=== PATIENT | female | born 1965 | race Caucasian/White ===

== ENCOUNTER 2020-09-07 18:05 | Emergency (ER) | payer MEDICARE, MEDICAID, SELFPAY ==
--- NOTE | 2020-09-07 | XR_ITS ---
EXAMINATION: XR FOOT, LEFT CLINICAL INFORMATION: Trauma. Pain. Swelling. COMPARISON: None TECHNIQUE: AP, lateral, and oblique views of the left foot. FINDINGS: No fracture. No dislocation. Joint spaces are normal. Incidental note of longitudinal osteosclerosis medial cortex of the distal phalange of the great toe. No abnormal periosteal reaction. Small plantar calcaneal spur. Small spur at the insertion of Achilles tendon at the posterior calcaneus. XR/XR foot LT min 3V IMPRESSION: No acute abnormality of the left foot.
[2020-09-07 18:18] VITALS: BP 131/86; PULSE 100; RESP 18; TEMP 36.5; O2SAT 95; BMI 23.8
--- NOTE | 2020-09-07 18:37 | ED.LOWEXIN ---
HPI - Extremity Injury (Lower) General Chief Complaint: Extremity Injury, Lower Stated Complaint: foot pain due to injury Time Seen by Provider: 09/07/20 18:35 Source: patient Mode of arrival: ambulatory Limitations: no limitations History of Present Illness HPI Narrative: Patient dropped a can of beans 2 days ago on to her left foot since then complaining of pain there was swelling before now swelling is getting better a slight redness still there she has pain on ambulation no open wound Onset (ago): day(s) (2) Injury: Left: foot Treatments prior to arrival: cold therapy Related Data Previous Rx's Medication Instructions Recorded oxycodone 5 mg PO Q6H PRN #20 tab 09/07/20 Allergies Allergy/AdvReac Type Severity Reaction Status Date / Time alcohol [ALCOHOL] Allergy Unknown SWELLING Verified 09/07/20 18:52 (FACIAL) duloxetine [From CYMBALTA] Allergy Unknown UNKNOWN Verified 09/07/20 18:52 pregabalin [From LYRICA] Allergy Unknown UNKNOWN Verified 09/07/20 18:52 shellfish derived Allergy Unknown UNKNOWN Verified 09/07/20 18:52 [SHELLFISH DERIVED] ketorolac [From Toradol] Allergy Rash Verified 09/07/20 18:52 tramadol Allergy Hives Verified 09/07/20 18:52 ondansetron [From Zofran] AdvReac Vomiting Verified 09/07/20 18:52 Review of Systems Review of Systems: Yes all other systems are reviewed and are negative PMFSH Past Medical History Medical History HTN (hypertension) Low back pain Surgical History History of left shoulder replacement Social History Social History Smoking Status: Light tobacco smoker Use of substances other than those prescribed or required for medical reasons: No Advance Directives: No Advance Directives Information Provided: Yes Physical Exam Vital Signs: Vital Signs: Last Vital Signs Temp 97.7 F 09/07/20 18:18 Pulse 100 09/07/20 18:18 Resp 18 09/07/20 18:18 BP 131/86 09/07/20 18:18 Pulse Ox 95 09/07/20 18:18 Body Mass Index 23.8 Const: General: no acute distress HENMT: Head: Yes normocephalic and Yes atraumatic Resp: Effort & Inspection: normal respiratory effort Cardio: Rate: regular rate Rhythm: regular rhythm Extrem: Ankle/foot/toe images: 1. Diffuse tenderness with erythema slight swelling no focal bony tenderness no open wound Course Course Course Narrative: X-ray negative for any fracture. Will give patient a postop shoe and pain management Discharge Plan Discharge Clinical Impression: Contusion of foot, left Qualifiers: Encounter type: initial encounter Qualified Code(s): S90.32XA - Contusion of left foot, initial encounter Patient Disposition: Home, Self-Care Instructions: Foot Contusion (ED) Additional Instructions: Apply ice, keep the left foot elevated take pain medication as advised Follow with PCP if not better Prescriptions: New oxycodone 5 mg tablet 5 mg PO Q6H PRN (Reason: Pain, Moderate) Qty: 20 RF: 0 Interventions: ED Discharge Assessment Last Done: 09/07/20 19:44 Discharge Date/Time: 09/07/20 19:44
[2020-09-07] MEDS: oxyCODONE HCl Immed Release 5 MG TABLET 10 MG PO (19:36)
== END 2020-09-07 19:44 | disposition home or self-care (01) ==
PROVIDERS: Emergency Provider Internal Medicine; PCP Internal Medicine
DX: S90.32XA Contusion of left foot, initial encounter (principal); M79.672 Pain in left foot; Y29.XXXA Contact with blunt object, undetermined intent, initial encounter; Y93.9 Activity, unspecified; Y92.9 Unspecified place or not applicable; Y99.9 Unspecified external cause status
CPT/HCPCS: 73630; 99283; 99284

== ENCOUNTER 2021-08-07 19:08 | Emergency (ER) | payer MEDICARE, MEDICAID, SELFPAY ==
[2021-08-07 22:54] VITALS: PULSE 63; TEMP 36.5; O2SAT 98; BMI 31.1
--- NOTE | 2021-08-07 22:58 | ED_ITS ---
HPI - Abdominal Pain General Chief Complaint: General Medical Stated Complaint: n/v/abd pain urogen probs Time Seen by Provider: 08/07/21 21:25 Source: patient Mode of arrival: ambulatory Limitations: no limitations History of Present Illness HPI narrative: Patient history of gastroparesis, anxiety, IVDA heroin abuse been to ER multiple times for abdominal pain and vomiting with anxiety comes here for same complaining of diffuse abdominal pain with vomiting multiple times no fever no chills patient already been vaccinated against COVID no cough no shortness of breath asking for Ativan patient is borderline diabetic supposed to be on metformin has not started yet Related Data Previous Rx's Medication Instructions Recorded oxycodone 5 mg tablet 5 mg PO Q6H PRN #20 tab 09/07/20 lorazepam 1 mg tablet (Ativan) 1 mg PO TID PRN #14 tab 08/08/21 metformin 500 mg tablet 500 mg PO BID #60 tab 08/08/21 prochlorperazine maleate 10 mg 10 mg PO Q8H PRN #10 tab 08/08/21 tablet (Compazine) Allergies Allergy/AdvReac Type Severity Reaction Status Date / Time alcohol [ALCOHOL] Allergy Unknown SWELLING Verified 09/07/20 18:52 (FACIAL) duloxetine [From CYMBALTA] Allergy Unknown UNKNOWN Verified 09/07/20 18:52 pregabalin [From LYRICA] Allergy Unknown UNKNOWN Verified 09/07/20 18:52 shellfish derived Allergy Unknown UNKNOWN Verified 09/07/20 18:52 [SHELLFISH DERIVED] ketorolac [From Toradol] Allergy Rash Verified 09/07/20 18:52 tramadol Allergy Hives Verified 09/07/20 18:52 ondansetron [From Zofran] AdvReac Vomiting Verified 09/07/20 18:52 Review of Systems Review of Systems Yes all other systems are reviewed and are negative Physical Exam Vital Signs: Vital Signs: Last Vital Signs Temp 97.7 F 08/07/21 22:54 Pulse 71 08/08/21 03:43 Resp 24 H 08/08/21 03:43 BP 154/71 H 08/08/21 03:43 Pulse Ox 98 08/08/21 02:57 BMI result Body Mass Index 31.1 Appearance: Alert. Oriented X3. Anxious Eyes: PERRLA, No Nystagmus ENT: Pharynx normal. Oral Mucosa moist edentulous Neck: Normal inspection. Neck supple. CVS: Normal heart rate and rhythm. Pulses normal. Respiratory: No respiratory distress. Equal air entry bilateral, no wheezing/rales/rhonchi Abdomen: Soft , diffuse abdominal tenderness no rebound tenderness or guarding, Bowel sounds are present, no mass palpable, no CVA tenderness Skin: Skin warm and dry. Normal skin color. Normal skin turgor. Extremities: No lower extremity edema. No calf tenderness IVDA track rouse upper extremities and lower extremities Neuro: Oriented X 3. MDM - Abdominal Pain MDM Narrative Medical decision making narrative: Patient with diabetes substance abuse gastroparesis diabetic no significant acidosis patient felt better after IV fluids and Ativan taking p.o. fluids , advised to follow with PCP Lab Data Attestation: I reviewed the patient's lab results. Result diagrams: 08/07/21 23:15 08/08/21 00:01 Labs: Lab Results 08/07/21 08/07/21 08/08/21 Range/Units 23:15 23:37 00:01 WBC 15.3 H (4.8-10.8) X10*3/uL RBC 5.43 (4.20-5.50) X10*6/uL Hgb 15.0 (12.0-16.0) g/dl Hct 43.7 (37.0-47.0) % MCV 80.5 (80.0-98.0) fL MCH 27.6 (27.0-33.0) pg MCHC 34.3 (31.0-35.0) g/dl RDW 13.8 (11.0-16.0) % Plt Count 316 (160-400) X10*3/uL MPV 9.6 (9.4-12.3) fL Immature Gran % (Auto) 0.4 (0.0-0.4) % Neut % (Auto) 86.0 H (45-73) % Lymph % (Auto) 10.0 L (20-40) % [place] % (Auto) 3.2 (2-11) % Eos % (Auto) 0.1 (0-4) % Baso % (Auto) 0.3 (0-2) % Lymph # (Auto) 1.5 (1.2-4.9) X10*3/uL [place] # (Auto) 0.5 (0.1-1.2) X10*3/uL Eos # (Auto) 0.0 (0.0-0.4) X10*3/uL Baso # (Auto) 0.1 (0.0-0.2) X10*3/uL Abs Immat Gran (auto) 0.06 H (0.00-0.03) X10*3/uL Absolute Neuts (auto) 13.1 H (2.0-8.3) x10*3/uL Absolute Nucleated RBC 0.000 (0.0-0.012) X10*3/uL Nucleated RBC % (auto) 0.0 (0.0-0.2) /100WBC Sodium 139 (135-145) mmol/L Potassium 3.7 (3.3-5.1) mmol/L Chloride 101 (96-108) mmol/L Carbon Dioxide 21 L (22-29) mmol/L Anion Gap 21 H (12-20) BUN 8 L (9-16) mg/dL Creatinine 0.79 (0.5-1.4) mg/dL Estim Creat Clear Calc 74.6 Estimated GFR > 60 POC Glucose (60-115) mg/dL Random Glucose 374 H* (60-115) mg/dL Calcium 9.3 (8.4-10.2) mg/dL Magnesium 1.6 (1.6-2.6) mg/dL Total Bilirubin 0.5 (0.0-1.0) mg/dL AST 70 H (5-31) U/L ALT 92 H (0-31) U/L Alkaline Phosphatase 156 H (39-117) U/L Total Protein 7.6 (6.5-8.0) g/dL Albumin 4.2 (3.5-5.0) g/dL Lipase 9 (8-78) U/L COVID-19 (ANNITA) Negative (Negative) COVID-19 Clin Com See Note 08/08/21 08/08/21 08/08/21 Range/Units 02:32 03:41 05:05 WBC (4.8-10.8) X10*3/uL RBC (4.20-5.50) X10*6/uL Hgb (12.0-16.0) g/dl Hct (37.0-47.0) % MCV (80.0-98.0) fL MCH (27.0-33.0) pg MCHC (31.0-35.0) g/dl RDW (11.0-16.0) % Plt Count (160-400) X10*3/uL MPV (9.4-12.3) fL Immature Gran % (Auto) (0.0-0.4) % Neut % (Auto) (45-73) % Lymph % (Auto) (20-40) % [place] % (Auto) (2-11) % Eos % (Auto) (0-4) % Baso % (Auto) (0-2) % Lymph # (Auto) (1.2-4.9) X10*3/uL [place] # (Auto) (0.1-1.2) X10*3/uL Eos # (Auto) (0.0-0.4) X10*3/uL Baso # (Auto) (0.0-0.2) X10*3/uL Abs Immat Gran (auto) (0.00-0.03) X10*3/uL Absolute Neuts (auto) (2.0-8.3) x10*3/uL Absolute Nucleated RBC (0.0-0.012) X10*3/uL Nucleated RBC % (auto) (0.0-0.2) /100WBC Sodium (135-145) mmol/L Potassium (3.3-5.1) mmol/L Chloride (96-108) mmol/L Carbon Dioxide (22-29) mmol/L Anion Gap (12-20) BUN (9-16) mg/dL Creatinine (0.5-1.4) mg/dL Estim Creat Clear Calc Estimated GFR POC Glucose 315 H 312 H 306 H (60-115) mg/dL Random Glucose (60-115) mg/dL Calcium (8.4-10.2) mg/dL Magnesium (1.6-2.6) mg/dL Total Bilirubin (0.0-1.0) mg/dL AST (5-31) U/L ALT (0-31) U/L Alkaline Phosphatase (39-117) U/L Total Protein (6.5-8.0) g/dL Albumin (3.5-5.0) g/dL Lipase (8-78) U/L COVID-19 (ANNITA) (Negative) COVID-19 Clin Com 08/08/21 Range/Units 06:16 WBC (4.8-10.8) X10*3/uL RBC (4.20-5.50) X10*6/uL Hgb (12.0-16.0) g/dl Hct (37.0-47.0) % MCV (80.0-98.0) fL MCH (27.0-33.0) pg MCHC (31.0-35.0) g/dl RDW (11.0-16.0) % Plt Count (160-400) X10*3/uL MPV (9.4-12.3) fL Immature Gran % (Auto) (0.0-0.4) % Neut % (Auto) (45-73) % Lymph % (Auto) (20-40) % [place] % (Auto) (2-11) % Eos % (Auto) (0-4) % Baso % (Auto) (0-2) % Lymph # (Auto) (1.2-4.9) X10*3/uL [place] # (Auto) (0.1-1.2) X10*3/uL Eos # (Auto) (0.0-0.4) X10*3/uL Baso # (Auto) (0.0-0.2) X10*3/uL Abs Immat Gran (auto) (0.00-0.03) X10*3/uL Absolute Neuts (auto) (2.0-8.3) x10*3/uL Absolute Nucleated RBC (0.0-0.012) X10*3/uL Nucleated RBC % (auto) (0.0-0.2) /100WBC Sodium (135-145) mmol/L Potassium (3.3-5.1) mmol/L Chloride (96-108) mmol/L Carbon Dioxide (22-29) mmol/L Anion Gap (12-20) BUN (9-16) mg/dL Creatinine (0.5-1.4) mg/dL Estim Creat Clear Calc Estimated GFR POC Glucose 283 H (60-115) mg/dL Random Glucose (60-115) mg/dL Calcium (8.4-10.2) mg/dL Magnesium (1.6-2.6) mg/dL Total Bilirubin (0.0-1.0) mg/dL AST (5-31) U/L ALT (0-31) U/L Alkaline Phosphatase (39-117) U/L Total Protein (6.5-8.0) g/dL Albumin (3.5-5.0) g/dL Lipase (8-78) U/L COVID-19 (ANNITA) (Negative) COVID-19 Clin Com Discharge Plan Discharge Clinical Impression: Anxiety, Diabetic gastroparesis Patient Disposition: Home, Self-Care Instructions: Diabetic Gastroparesis (DC), Anxiety (ED) Additional Instructions: Drink plenty of fluids Ativan for anxiety Compazine for nausea and vomiting Follow-up with your PCP for elevated blood sugar Start taking metformin for your diabetes Prescriptions: New prochlorperazine maleate [Compazine] 10 mg tablet 10 mg PO Q8H PRN (Reason: nausea and vomiting) Qty: 10 RF: 0 lorazepam [Ativan] 1 mg tablet 1 mg PO TID PRN (Reason: anxiety) Qty: 14 RF: 0 metformin 500 mg tablet 500 mg PO BID Qty: 60 RF: 0 No Action oxycodone 5 mg tablet 5 mg PO Q6H PRN (Reason: Pain, Moderate) Qty: 20 RF: 0 Interventions: ED Discharge Assessment Last Done: 08/08/21 06:45 PMFSH Past Medical History Medical History Anxiety Gastro-esophageal reflux Gastroparesis Hepatitis Heroin abuse HTN (hypertension) IV drug abuse Leukocytosis Low back pain Surgical History H/O tubal ligation History of left shoulder replacement Hx of cholecystectomy Social History Social History Advance Directives: No Advance Directives Information Provided: No
[2021-08-07 22:59] VITALS: BP 138/69
[2021-08-07 23:18] LABS: MANUAL DIFF FLAG NO
[2021-08-07 23:20] LABS: Basophils Absolute Auto 0.1 X10*3/uL (0.0-0.2); Basophils Percent Auto 0.3 % (0-2); Eosinophils Percent Auto 0.1 % (0-4); Hematocrit 43.7 % (37.0-47.0); Imm Gran Abs Auto 0.06 X10*3/uL (0.00-0.03); Imm Gran Pct Auto 0.4 % (0.0-0.4); Lymphocytes Absolute Auto 1.5 X10*3/uL (1.2-4.9); Mean Corpuscular HGB Conc 34.3 g/dl (31.0-35.0); Mean Corpuscular Hemoglobin 27.6 pg (27.0-33.0); Mean Corpuscular Volume 80.5 fL (80.0-98.0); Mean Platelet Volume 9.6 fL (9.4-12.3); Monocytes Absolute Auto 0.5 X10*3/uL (0.1-1.2); Monocytes Percent Auto 3.2 % (2-11); Neutrophils Absolute Auto 13.1 x10*3/uL (2.0-8.3); Platelet Count 316 X10*3/uL (160-400); Red Blood Count 5.43 X10*6/uL (4.20-5.50); Red Cell Distribution Width 13.8 % (11.0-16.0); White Blood Count 15.3 X10*3/uL (4.8-10.8)
[2021-08-07] MEDS: 0.9 % Sodium Chloride 1,000 ML 999 ML IVCONT (23:31)
[2021-08-07] MEDS: LORazepam 2 MG/ML VIAL 1 MG IVPUSH (23:31)
[2021-08-07 23:49] VITALS: BP 163/78; PULSE 68; RESP 20; O2SAT 97
[2021-08-08 00:06] LABS: COVID-19 Test Negative (Negative); IDNOW Serial# 9DD0AD1C
[2021-08-08 00:32] LABS: Alanine Aminotransferase 92 U/L (0-31); Albumin Level 4.2 g/dL (3.5-5.0); Alkaline Phosphatase 156 U/L (39-117); Anion Gap 21 (12-20); Aspartate Amino Transferase 70 U/L (5-31); Bilirubin Total 0.5 mg/dL (0.0-1.0); Blood Urea Nitrogen 8 mg/dL (9-16); Calcium 9.3 mg/dL (8.4-10.2); Carbon Dioxide 21 mmol/L (22-29); Chloride 101 mmol/L (96-108); Creatinine Clr Calc Pharmacy 74.6; Estimated Glomerular Filt Rate > 60; Glucose Random 374 mg/dL (60-115); Lipase 9 U/L (8-78); Magnesium 1.6 mg/dL (1.6-2.6); Potassium 3.7 mmol/L (3.3-5.1); Sodium 139 mmol/L (135-145); Total Protein 7.6 g/dL (6.5-8.0)
[2021-08-08] MEDS: 0.9 % Sodium Chloride 1,000 ML 999 ML IVCONT (00:48)
[2021-08-08] MEDS: Prochlorperazine Edisylate 10 MG/2 ML VIAL IVPUSH (01:44)
[2021-08-08] MEDS: LORazepam 2 MG/ML VIAL 1 MG IVPUSH (01:44)
[2021-08-08 02:35] LABS: Glucose, Whole Blood 315 mg/dL (60-115)
[2021-08-08 02:57] VITALS: BP 166/74; PULSE 77; RESP 18; O2SAT 98
[2021-08-08] MEDS: Insulin Lispro 100 UNIT/ML 3 ML VIAL 8 UNIT SUBCUT ×2 (03:13→05:22)
[2021-08-08 03:43] VITALS: BP 154/71; PULSE 71; RESP 24
[2021-08-08 03:46] LABS: Glucose, Whole Blood 312 mg/dL (60-115)
[2021-08-08 05:09] LABS: Glucose, Whole Blood 306 mg/dL (60-115)
--- NOTE | 2021-08-08 05:15 | PC.NURSE ---
PAIENT SLEEPING. POC RECHECKED FOR 306. MD MADE AWARE, PLAN OF CARE FOR FURTHER INSULIN ADMINISTRATION, PO RIAL WITH WATER AND SALTINE CRACKERS. RE-EVALUATE FOR DISCHARGE HOME.
[2021-08-08 06:19] LABS: Glucose, Whole Blood 283 mg/dL (60-115)
[2021-08-08 07:45] LABS: Estimated Average Glucose 237 mg/dL; Hemoglobin A1c % 9.9 %
== END 2021-08-08 08:40 | disposition home or self-care (01) ==
PROVIDERS: Emergency Provider Internal Medicine
DX: F41.9 Anxiety disorder, unspecified (principal); E11.43 Type 2 diabetes mellitus with diabetic autonomic (poly)neuropathy; K31.84 Gastroparesis; Z20.822 Contact with and (suspected) exposure to COVID-19; R11.2 Nausea with vomiting, unspecified; F11.10 Opioid abuse, uncomplicated; Z79.899 Other long term (current) drug therapy
CPT/HCPCS: 36415; 80053; 82947; 83036; 83690; 83735; 85025; 87635; 96361; 96374; 96375; 96376; 99284; J2060

== ENCOUNTER 2021-08-14 15:05 | Emergency (ER) | payer MEDICARE, MEDICAID, SELFPAY ==
--- NOTE | ~2021-08-14 | XR_ITS ---
EXAMINATION: XR CHEST CLINICAL INFORMATION: Cough COMPARISON: 02/06/2017 TECHNIQUE: Frontal view of the chest was obtained. FINDINGS: Lung volumes are symmetric. No focal consolidation is seen. No evidence of pneumothorax, pleural effusion, or pulmonary edema. The cardiomediastinal contour is unremarkable. Left shoulder arthroplasty hardware is partially visualized. XR/XR chest 1V IMPRESSION: No acute cardiopulmonary findings.
--- NOTE | ~2021-08-14 | CT_ITS ---
EXAMINATION: CT ABDOMEN AND PELVIS WITH CONTRAST CLINICAL INFORMATION: Abdominal pain, nausea, vomiting COMPARISON: 09/29/2019 TECHNIQUE: Multidetector volumetric images were obtained from the superior aspect of the liver through the pubic symphysis following administration 85 mL of Omnipaque 350 intravenous contrast. Sagittal and coronal reformatted images were obtained on the technologist's workstation. Oral contrast: No This CT examination was performed using dose optimization techniques as appropriate, variously including the following: *Automated exposure control *Adjustment of mA and/or kV according to patient size (this includes techniques or standardized protocols for targeted exams where dose is matched to indication/reason for exam; i.e. extremities or head) *Use of iterative reconstruction technique DLP: 671 mGy-cm FINDINGS: LUNG BASES: The visualized lung bases are unremarkable. LIVER, GALLBLADDER, AND BILIARY TREE: Patient is status post cholecystectomy, and there is intrahepatic and extrahepatic biliary ductal dilatation which may be physiologic in this setting. No focal hepatic abnormality is seen. PANCREAS: Unremarkable. SPLEEN: Unremarkable. ADRENAL GLANDS: Prominent appearance of both adrenal glands is similar to prior. KIDNEYS AND URETERS: Bilateral nephrograms are symmetric. No hydronephrosis or obstructing calculus identified. Tiny hypodensity in the mid left kidney favors a cyst. BLADDER: Unremarkable. GASTROINTESTINAL TRACT: No evidence of bowel obstruction or significant wall thickening. Mild colonic diverticulosis. Moderate stool throughout the colon. The appendix is unremarkable. No free fluid or free air is seen. ABDOMINAL WALL: No significant hernia is appreciated. LYMPH NODES: Normal. VASCULAR: Scattered atherosclerotic calcifications are noted. PELVIC VISCERA: Unremarkable. OSSEOUS STRUCTURES: Degenerative changes are noted in the spine. CT/CT abdomen pelvis w con IMPRESSION: Intrahepatic and extrahepatic biliary ductal dilatation, which may be physiologic in the setting of prior cholecystectomy. Otherwise, no acute findings identified in the abdomen/pelvis. Fleischner guidelines were followed.
[2021-08-14 15:16] VITALS: BP 140/90; PULSE 92; O2SAT 98
[2021-08-14 20:28] VITALS: BP 146/71; PULSE 76; RESP 18; TEMP 37; O2SAT 99; BMI 29.2
[2021-08-14] MEDS: Ondansetron ODT 4 MG TAB.RAPDIS TRANSLINGU ×2 (20:32→22:28)
--- NOTE | 2021-08-14 22:23 | PC.NURSE ---
attempted to draw labs twice @21:15. Unsuccessful, Pt difficult stick, stated her last IV had to be placed in her neck.
--- NOTE | 2021-08-14 23:23 | ECG_ITS ---
Test Reason : cp Blood Pressure : / mmHG Vent. Rate : 084 BPM Atrial Rate : 084 BPM P-R Int : 158 ms QRS Dur : 088 ms QT Int : 384 ms P-R-T Axes : -35 -25 049 degrees QTc Int : 453 ms Unusual P axis, possible ectopic atrial rhythm Minimal voltage criteria for LVH, may be normal variant ( Vladimir product ) Inferior infarct (cited on or before 06-FEB-2019) Abnormal ECG When compared with ECG of 06-FEB-2019 07:37, No significant change was found Referred By: Mathew Alexandre Electronically Signed By:Kaden Alexander
[2021-08-14 23:25] VITALS: BP 167/79; PULSE 84; RESP 20; TEMP 36.4; O2SAT 96
[2021-08-14 23:46] LABS: MANUAL DIFF FLAG NO
[2021-08-14 23:48] LABS: Appearance Urine CLEAR; Basophils Percent Auto 0.3 % (0-2); Color Urine YELLOW; Eosinophils Percent Auto 0.1 % (0-4); Glucose Urine UA 500 MG/DL (NEG); Hematocrit 45.9 % (37.0-47.0); Hemoglobin 15.9 g/dl (12.0-16.0); Imm Gran Abs Auto 0.07 X10*3/uL (0.00-0.03); Imm Gran Pct Auto 0.4 % (0.0-0.4); Leukocyte Esterase Urine NEG (NEG); Lymphocytes Absolute Auto 3.6 X10*3/uL (1.2-4.9); Lymphocytes Percent Auto 22.5 % (20-40); Mean Corpuscular HGB Conc 34.6 g/dl (31.0-35.0); Mean Corpuscular Hemoglobin 27.8 pg (27.0-33.0); Mean Corpuscular Volume 80.4 fL (80.0-98.0); Mean Platelet Volume 9.1 fL (9.4-12.3); Monocytes Absolute Auto 1.4 X10*3/uL (0.1-1.2); Monocytes Percent Auto 8.6 % (2-11); Neutrophils Absolute Auto 10.8 x10*3/uL (2.0-8.3); Neutrophils Percent Auto 68.1 % (45-73); Nitrite Urine NEG (NEG); Platelet Count 336 X10*3/uL (160-400); Red Blood Count 5.71 X10*6/uL (4.20-5.50); Red Cell Distribution Width 13.7 % (11.0-16.0); Specific Gravity - Urine >= 1.030 (1.005-1.025); UACC Culture Trigger NO; Urine Blood TRACE (NEG); Urine Ketones 15 MG/DL (NEG); Urine Protein 1+ MG/DL (NEG-TRACE); White Blood Count 15.8 X10*3/uL (4.8-10.8)
[2021-08-14 23:57] LABS: Bacteria Urine 2+ /LPF; Mucus Urine 1+ /LPF; RBC Urine 0-2 /HPF (0); Squamous Epithelial Cell Urine 3+ /LPF; WBC Urine 0-2 /HPF (0-4)
[2021-08-15 00:04] LABS: COVID-19 Test Negative (Negative); IDNOW Serial# 9DD0AD1C
[2021-08-15 00:14] LABS: Lipase 15 U/L (8-78)
[2021-08-15 00:15] LABS: Sodium 131 mmol/L (135-145)
[2021-08-15 00:16] LABS: Anion Gap 16 (12-20); Bilirubin Direct 0.3 mg/dL (0.0-0.5); Bilirubin Total 0.6 mg/dL (0.0-1.0); Blood Urea Nitrogen 12 mg/dL (9-16); Calcium 10.2 mg/dL (8.4-10.2); Carbon Dioxide 27 mmol/L (22-29); Chloride 92 mmol/L (96-108); Creatinine Clr Calc Pharmacy 76.2; Estimated Glomerular Filt Rate > 60; Glucose Random 296 mg/dL (60-115); Potassium 3.8 mmol/L (3.3-5.1)
[2021-08-15 00:17] LABS: Alanine Aminotransferase 34 U/L (0-31); Albumin Level 4.4 g/dL (3.5-5.0); Alkaline Phosphatase 124 U/L (39-117); Aspartate Amino Transferase 20 U/L (5-31); Total Protein 7.8 g/dL (6.5-8.0)
--- NOTE | 2021-08-15 03:23 | ED_ITS ---
HPI - Nausea/Vomiting/Diarrhea General Chief complaint: Nausea/Vomiting/Diarrhea Stated complaint: N/V X'S 3 DAYS,? NEW MED Time Seen by Provider: 08/14/21 22:26 Source: patient Mode of arrival: EMS History of Present Illness HPI Narrative: 56-year-old female who presents with 2-3 days of nausea, vomiting with subjective chills as well as shortness of breath but denies any chest pain/palpitations, fevers, diarrhea but has continued to pass gas and states that she is also having urinary pain/burning/frequency. Patient dorsal is that she does not drink alcohol or smoke marijuana, but does use IVDA and last used 2-3 days ago. Related Data Previous Rx's Medication Instructions Recorded oxycodone 5 mg tablet 5 mg PO Q6H PRN #20 tab 09/07/20 lorazepam 1 mg tablet (Ativan) 1 mg PO TID PRN #14 tab 08/08/21 metformin 500 mg tablet 500 mg PO BID #60 tab 08/08/21 prochlorperazine maleate 10 mg 10 mg PO Q8H PRN #10 tab 08/08/21 tablet (Compazine) Allergies Allergy/AdvReac Type Severity Reaction Status Date / Time alcohol [ALCOHOL] Allergy Unknown SWELLING Verified 08/14/21 20:27 (FACIAL) duloxetine [From CYMBALTA] Allergy Unknown UNKNOWN Verified 08/14/21 20:27 pregabalin [From LYRICA] Allergy Unknown UNKNOWN Verified 08/14/21 20:27 shellfish derived Allergy Unknown UNKNOWN Verified 08/14/21 20:27 [SHELLFISH DERIVED] ketorolac [From Toradol] Allergy Rash Verified 08/14/21 20:27 tramadol Allergy Hives Verified 08/14/21 20:27 ondansetron [From Zofran] AdvReac Vomiting Verified 08/14/21 20:27 Review of Systems Review of Systems: Pertinent positives and negatives as stated in HPI 10 point review of systems is otherwise negative. PMFSH Past Medical History Source: nursing notes reviewed Medical History Anxiety Diabetes Gastro-esophageal reflux Gastroparesis Hepatitis Heroin abuse HTN (hypertension) IV drug abuse Leukocytosis Low back pain Surgical History H/O tubal ligation History of left shoulder replacement Hx of cholecystectomy Social History Social History Patient Tobacco Use Status: Never used Tobacco Use of substances other than those prescribed or required for medical reasons: No Advance Directives: No Advance Directives Information Provided: Yes Patient : No Physical Exam Vital Signs: Vital Signs: Last Vital Signs Temp 98.0 F 08/15/21 06:25 Pulse 67 08/15/21 04:34 Resp 20 08/14/21 23:25 BP 156/79 H 08/15/21 04:34 Pulse Ox 96 08/14/21 23:25 BMI result Body Mass Index 29.2 VITAL SIGNS: Reviewed. GENERAL: Well developed, well nourished, in no acute distress. HEAD: Normocephalic/atraumatic EYES: PERRLA, EOMI LUNGS: Normal breath sounds. No adventitious sounds or accessory muscle use. SpO2<96> CARDIOVASCULAR: Regular rate and rhythm without noted murmurs, no JVD or lower extremity edema. ABDOMEN: Obese, Soft, non-tender, non-distended with bowel sounds. SKIN: Inspection of the skin reveals no rashes NEUROLOGIC: Alert and oriented x 4. Strength and sensation to light touch were grossly intact x 4. Course Course Course Narrative: 56-year-old female with history and clinical presentation consistent with possible gastroenteritis, versus less likely diverticulitis and patient has no significant surgical history to support SBO and otherwise may be consistent with cycle vomiting syndrome versus possible withdrawal symptoms. Review of all investigations negative for acute findings in the noted leukocytosis is likely secondary to patient's multiple episodes of nausea and vomiting. Otherwise all imaging is negative for acute findings, she received 2 L of IV fluids, is feeling much better and has tolerated oral intake. She is otherwise discharged home in stable condition. MDM - Nausea/Vomiting/Diarrhea Lab Data Result diagrams: 08/14/21 23:40 08/14/21 23:40 Labs: Lab Results 08/14/21 08/14/21 08/14/21 Range/Units 23:40 23:40 23:40 WBC 15.8 H (4.8-10.8) X10*3/uL RBC 5.71 H (4.20-5.50) X10*6/uL Hgb 15.9 (12.0-16.0) g/dl Hct 45.9 (37.0-47.0) % MCV 80.4 (80.0-98.0) fL MCH 27.8 (27.0-33.0) pg MCHC 34.6 (31.0-35.0) g/dl RDW 13.7 (11.0-16.0) % Plt Count 336 (160-400) X10*3/uL MPV 9.1 L (9.4-12.3) fL Immature Gran % (Auto) 0.4 (0.0-0.4) % Neut % (Auto) 68.1 (45-73) % Lymph % (Auto) 22.5 (20-40) % [place] % (Auto) 8.6 (2-11) % Eos % (Auto) 0.1 (0-4) % Baso % (Auto) 0.3 (0-2) % Lymph # (Auto) 3.6 (1.2-4.9) X10*3/uL [place] # (Auto) 1.4 H (0.1-1.2) X10*3/uL Eos # (Auto) 0.0 (0.0-0.4) X10*3/uL Baso # (Auto) 0.0 (0.0-0.2) X10*3/uL Abs Immat Gran (auto) 0.07 H (0.00-0.03) X10*3/uL Absolute Neuts (auto) 10.8 H (2.0-8.3) x10*3/uL Absolute Nucleated RBC 0.000 (0.0-0.012) X10*3/uL Nucleated RBC % (auto) 0.0 (0.0-0.2) /100WBC Sodium 131 L (135-145) mmol/L Potassium 3.8 (3.3-5.1) mmol/L Chloride 92 L (96-108) mmol/L Carbon Dioxide 27 (22-29) mmol/L Anion Gap 16 (12-20) BUN 12 (9-16) mg/dL Creatinine 0.75 (0.5-1.4) mg/dL Estim Creat Clear Calc 76.2 Estimated GFR > 60 Random Glucose 296 H (60-115) mg/dL Calcium 10.2 D (8.4-10.2) mg/dL Total Bilirubin 0.6 (0.0-1.0) mg/dL Direct Bilirubin 0.3 (0.0-0.5) mg/dL AST 20 D (5-31) U/L ALT 34 H (0-31) U/L Alkaline Phosphatase 124 H D (39-117) U/L Troponin I High Sens (<3.5-17.0) ng/L Total Protein 7.8 (6.5-8.0) g/dL Albumin 4.4 (3.5-5.0) g/dL Lipase 15 (8-78) U/L Urine Color Urine Appearance Urine pH (5.0-8.0) Ur Specific [place] (1.005-1.025) Urine Protein (NEG-TRACE) MG/DL Urine Glucose (UA) (NEG) MG/DL Urine Ketones (NEG) MG/DL Urine Blood (NEG) Urine Nitrite (NEG) Ur Leukocyte Esterase (NEG) Urine RBC (0) /HPF Urine WBC (0-4) /HPF Ur Squamous Epith Cells /LPF Urine Bacteria /LPF Urine Mucus /LPF Urine Yeast /HPF COVID-19 (ANNITA) Negative (Negative) COVID-19 Clin Com See Note 08/14/21 08/14/21 Range/Units 23:40 23:40 WBC (4.8-10.8) X10*3/uL RBC (4.20-5.50) X10*6/uL Hgb (12.0-16.0) g/dl Hct (37.0-47.0) % MCV (80.0-98.0) fL MCH (27.0-33.0) pg MCHC (31.0-35.0) g/dl RDW (11.0-16.0) % Plt Count (160-400) X10*3/uL MPV (9.4-12.3) fL Immature Gran % (Auto) (0.0-0.4) % Neut % (Auto) (45-73) % Lymph % (Auto) (20-40) % [place] % (Auto) (2-11) % Eos % (Auto) (0-4) % Baso % (Auto) (0-2) % Lymph # (Auto) (1.2-4.9) X10*3/uL [place] # (Auto) (0.1-1.2) X10*3/uL Eos # (Auto) (0.0-0.4) X10*3/uL Baso # (Auto) (0.0-0.2) X10*3/uL Abs Immat Gran (auto) (0.00-0.03) X10*3/uL Absolute Neuts (auto) (2.0-8.3) x10*3/uL Absolute Nucleated RBC (0.0-0.012) X10*3/uL Nucleated RBC % (auto) (0.0-0.2) /100WBC Sodium (135-145) mmol/L Potassium (3.3-5.1) mmol/L Chloride (96-108) mmol/L Carbon Dioxide (22-29) mmol/L Anion Gap (12-20) BUN (9-16) mg/dL Creatinine (0.5-1.4) mg/dL Estim Creat Clear Calc Estimated GFR Random Glucose (60-115) mg/dL Calcium (8.4-10.2) mg/dL Total Bilirubin (0.0-1.0) mg/dL Direct Bilirubin (0.0-0.5) mg/dL AST (5-31) U/L ALT (0-31) U/L Alkaline Phosphatase (39-117) U/L Troponin I High Sens 6.0 (<3.5-17.0) ng/L Total Protein (6.5-8.0) g/dL Albumin (3.5-5.0) g/dL Lipase (8-78) U/L Urine Color YELLOW Urine Appearance CLEAR Urine pH 6.0 (5.0-8.0) Ur Specific [place] >= 1.030 H (1.005-1.025) Urine Protein 1+ H (NEG-TRACE) MG/DL Urine Glucose (UA) 500 H (NEG) MG/DL Urine Ketones 15 (NEG) MG/DL Urine Blood TRACE (NEG) Urine Nitrite NEG (NEG) Ur Leukocyte Esterase NEG (NEG) Urine RBC 0-2 (0) /HPF Urine WBC 0-2 (0-4) /HPF Ur Squamous Epith Cells 3+ /LPF Urine Bacteria 2+ /LPF Urine Mucus 1+ /LPF Urine Yeast TRACE /HPF COVID-19 (ANNITA) (Negative) COVID-19 Clin Com Discharge Plan Discharge Clinical Impression: Gastroenteritis, Dehydration Patient Disposition: Home, Self-Care Instructions: Dehydration (ED), Gastroenteritis (ED) Additional Instructions: 1. Resume all home medications as prescribed. 2. Follow-up with your primary care provider in the next 2-3 days for re- evaluation. Return to the ER for acute worsening of symptoms. Prescriptions: No Action oxycodone 5 mg tablet 5 mg PO Q6H PRN (Reason: Pain, Moderate) Qty: 20 RF: 0 prochlorperazine maleate [Compazine] 10 mg tablet 10 mg PO Q8H PRN (Reason: nausea and vomiting) Qty: 10 RF: 0 lorazepam [Ativan] 1 mg tablet 1 mg PO TID PRN (Reason: anxiety) Qty: 14 RF: 0 metformin 500 mg tablet 500 mg PO BID Qty: 60 RF: 0 Referrals: Desmond Ramachandran MD [Primary Care Provider] - 2 days
[2021-08-15] MEDS: 0.9 % Sodium Chloride 500 ML 999 ML IV (03:36)
--- NOTE | 2021-08-15 04:02 | PC.NURSE ---
Iv placed by [facility]. medicated per oct.
[2021-08-15] MEDS: 0.9 % Sodium Chloride 1,500 ML 999 ML IVCONT (04:31)
[2021-08-15] MEDS: Ketorolac Tromethamine 30 MG/ML VIAL 15 MG IVPUSH (04:32)
[2021-08-15 04:34] VITALS: BP 156/79; PULSE 67
--- NOTE | 2021-08-15 05:18 | PC.NURSE ---
pt assisted on the bed xie, complete bed change. pillow and warm blanket given.
[2021-08-15] MEDS: iohexoL 350 MG/ML 100 ML INFUS..BTL 85 ML IV (05:48)
[2021-08-15 06:25] VITALS: TEMP 36.7
--- NOTE | 2021-08-15 06:27 | PC.NURSE ---
po Challenge, pt oob to bathroom with a steady gait.
[2021-08-15] MEDS: Magnesium Hydrox/Alum Hydrox 30 ML ORAL.SUSP PO (06:50)
[2021-08-15] MEDS: Lidocaine HCl Viscous 2 % 15 ML SOLUTION 10 ML MUCOUS MEM (06:50)
== END 2021-08-15 07:02 | disposition home or self-care (01) ==
PROVIDERS: Emergency Medicine; Emergency Provider Student in an Organized Health Care Education/Training Program; PCP Internal Medicine
DX: K52.9 Noninfective gastroenteritis and colitis, unspecified (principal); E86.0 Dehydration; E11.9 Type 2 diabetes mellitus without complications; I10 Essential (primary) hypertension; Z20.822 Contact with and (suspected) exposure to COVID-19
CPT/HCPCS: 36415; 71045; 74177; 80048; 80076; 81001; 83690; 84484; 85025; 87635; 93005; 96361; 96374; 99285; J1885; Q9967

== ENCOUNTER 2022-04-06 13:42 | Emergency (ER) | payer MEDICARE, MEDICAID, SELFPAY ==
[2022-04-06 14:30] VITALS: BP 104/63; PULSE 79; RESP 18; TEMP 37.1; O2SAT 95; BMI 29.2
[2022-04-06 14:49] LABS: Hematocrit 43.4 % (37.0-47.0); Hemoglobin 14.4 g/dl (12.0-16.0); Mean Corpuscular HGB Conc 33.2 g/dl (31.0-35.0); Mean Corpuscular Hemoglobin 27.2 pg (27.0-33.0); Mean Corpuscular Volume 81.9 fL (80.0-98.0); Platelet Count 147 X10*3/uL (160-400); Red Cell Distribution Width 14.2 % (11.0-16.0); White Blood Count 7.5 X10*3/uL (4.8-10.8)
--- NOTE | 2022-04-06 14:51 | ED.GENADULT ---
HPI - General Adult General Chief complaint: Skin/Abscess/Foreign Body Stated complaint: rash under breast/private area after surgery Time Seen by Provider: 04/06/22 14:50 Source: patient Mode of arrival: ambulatory Limitations: no limitations History of Present Illness HPI narrative: 57-year-old female with a past medical history of anxiety, diabetes type 2, hepatitis, heroin abuse, hypertension, presents to the emergency department with rash located under bilateral breasts and genitals. Patient states that this rash appeared gradually over two weeks and she has been self treating it with [id number] antibacterial ointment with no relief. She endorses itchiness and redness. She also reports that with the recent heat wave she has experienced increased sweating, specifically under her breasts and in her genital area. She denies any fevers, chills, lightheadedness, dizziness, headaches, chest pain, shortness of breath, coughing, wheezing, nausea, vomiting, or abdominal pain. Patient also reports stopping her metformin 2 weeks ago as she believes there to be a direct correlation between the medication and rash. Onset (ago): week(s) Location: chest and genitals Radiation: non-radiation Severity: mild Severity scale (1-10): 2 Quality: burning Relieving factors: none Exacerbating factors: none Associated symptoms: denies other symptoms Treatments prior to arrival: none and other (OTC antibacterial ointment. ) Related Data Previous Rx's Medication Instructions Recorded oxycodone 5 mg tablet 5 mg PO Q6H PRN Pain, Moderate #20 09/07/20 tabs lorazepam 1 mg tablet (Ativan) 1 mg PO TID PRN anxiety #14 tabs 08/08/21 metformin 500 mg tablet 500 mg PO BID #60 tabs 08/08/21 prochlorperazine maleate 10 mg 10 mg PO Q8H PRN nausea and 08/08/21 tablet (Compazine) vomiting #10 tabs fluconazole 150 mg tablet 150 mg PO Q3D 2 doses #2 tabs 04/06/22 (Diflucan) Allergies Allergy/AdvReac Type Severity Reaction Status Date / Time alcohol [ALCOHOL] Allergy Unknown SWELLING Verified 08/14/21 20:27 (FACIAL) duloxetine [From CYMBALTA] Allergy Unknown UNKNOWN Verified 08/14/21 20:27 pregabalin [From LYRICA] Allergy Unknown UNKNOWN Verified 08/14/21 20:27 shellfish derived Allergy Unknown UNKNOWN Verified 08/14/21 20:27 [SHELLFISH DERIVED] ketorolac [From Toradol] Allergy Rash Verified 08/14/21 20:27 tramadol Allergy Hives Verified 08/14/21 20:27 ondansetron [From Zofran] AdvReac Vomiting Verified 08/14/21 20:27 Review of Systems Constitutional: Constitutional: Reports no additional constitutional complaints, Denies chills, Denies fever(s) and Denies night sweats Eyes: Eyes: Reports no additional eye complaints, Denies blurry vision, Denies change in vision, Denies diplopia, Denies eye discharge, Denies loss of vision and Denies eye pain ENT: Denies dizziness Cardiovascular: Cardiovascular: Reports no additional cardiovascular complaints, Denies chest pain, Denies lightheadedness, Denies Loss of Consciousness and Denies dyspnea Respiratory: Respiratory: Reports no additional respiratory complaints and Denies dyspnea Gastrointestinal: Gastrointestinal: Reports no additional gastrointestinal complaints, Denies abdominal pain, Denies melena, Denies hematochezia, Denies change in bowel habits and Denies change in stool character Genitourinary: Genitourinary: Denies hematuria, Denies urinary frequency, Denies dysuria, Denies urinary incontinence, Denies urinary hesitancy, Denies urinary urgency, Denies vaginal discharge, Reports vaginal pruritus and Reports other Musculoskeletal: Musculoskeletal: Reports no additional musculoskeletal complaints, Denies numbness and Denies tingling Integumentary/Breasts: Skin/Breast: Reports pruritus, Reports erythema and Reports rash Comments: redness, itching, rash under bilateral breasts and to genitalia Neurologic: Denies dizziness, Denies loss of vision, Denies numbness and Denies tingling Psychiatric: Psychiatric: Reports no additional psychiatric complaints Endocrine: Endocrine: Reports no additional endocrine complaints Hematologic/Lymphatic: Hematologic/Lymphatic: Reports no additional hematologic/lymphatic complaints Allergic/Immunologic: Allergic/Immunologic: Reports no additional allergic/immunologic complaints PMFSH Past Medical History Attestation statement: The following information was validated with the patient. Source: old records reviewed Medical History Anxiety Diabetes Gastro-esophageal reflux Gastroparesis Hepatitis Heroin abuse HTN (hypertension) IV drug abuse Leukocytosis Low back pain Surgical History H/O tubal ligation History of left shoulder replacement Hx of cholecystectomy Social History Social History Patient Tobacco Use Status: Never used Tobacco Advance Directives: No Advance Directives Information Provided: No Physical Exam ED Vital Signs: Vital Signs - 24 hr 04/06/22 14:30 Temperature 98.8 F Pulse Rate 79 Respiratory Rate 18 Blood Pressure 104/63 Pulse Oximetry 95 Oxygen Delivery Method Room Air BMI result Body Mass Index 29.2 Const General: cooperative, no acute distress, alert and awake Nutritional Appearance: well nourished Orientation/consciousness: patient oriented x3 Limitations: no limitations HENMT Head: Yes normal to inspection and Yes atraumatic Ears: hearing grossly normal bilaterally and external ears normal General nose exam: Normal external nose present, no nasal discharge noted and no epistaxis Face and sinus: Yes normal facial exam, No abrasion and No laceration Mouth: Normal oral and palatal mucosa present, no drooling and no muffled voice Eyes General: appearance normal, both eyes and all related structures Periorbital: periorbital findings normal Eyelids: Yes eyelids normal Conjunctivae: conjunctivae normal Pupils: Equal, round and reactive pupils present EOM: EOMs intact bilaterally Neck Neck: Yes normal visual inspection, Yes full ROM and Yes no lymphadenopathy Chest Other: Bilateral rash under breasts with erythema and raised papules. Chest palpation & inspection: rash Resp Effort & Inspection: normal respiratory effort and able to speak in complete sentences Auscultation: clear to auscultation bilaterally Cardio Rate: regular rate Rhythm: regular rhythm GI Inspection: Yes normal to inspection External Female Exam: erythema and externally tender Skin Other: obvious yeast type rash under bilateral breasts Neuro General: patient oriented x3 and moves all extremities Cranial nerves: Yes Equal, round and reactive pupils present Cognition (Neuro): normal cognition Motor exam (neuro): 5/5 motor strength present throughout Sensory Exam: Normal double simultaneous stimulation for sensation Coordination: [id number] test normal Extrem General: Yes normal to inspection, Yes full ROM and Yes capillary refill normal Psych Appearance: grossly normal Mental Status: mental status grossly normal Affect: normal affect Attitude: cooperative Thought process: Normal thought process present Thought content: Normal thought content present Insight: Good insight present (Psych) Medical Decision Making MDM Narrative Medical decision making narrative: Patient is a 57 year old female presenting to the emergency department today with a yeast infection. Patient's physical exam showed an obvious yeast infection under bilateral breasts and to the genital area. Patient's lab work was unremarkable. I explained my physical exam findings to the patient. I answered all questions asked by the patient I stressed the importance of the patient taking her medication as prescribed, including restarting her inappropriately stopped metformin. I stressed the importance of the patient following up with her primary care provider. I stressed the importance of the patient returning to the emergency department immediately if her symptoms were to worsen or if she were to develop any dizziness, shortness of breath, difficulty breathing, chest pain, blurry vision, loss of vision, nausea, vomiting, abdominal pain, fever, chills, back pain, or any other complaints. Patient verbalized agreement and understanding with this treatment plan and discharge. Differential Diagnosis Differential Diagnosis: yeast infection Medical Records Medical records reviewed: Yes I reviewed the patient's medical records. Lab Data Lab results reviewed: Yes I reviewed the patient's lab results. Result diagrams: 04/06/22 14:42 04/06/22 14:42 Labs: Lab Results 04/06/22 04/06/22 04/06/22 Range/Units 14:42 14:42 14:42 WBC 7.5 (4.8-10.8) X10*3/uL RBC 5.30 (4.20-5.50) X10*6/uL Hgb 14.4 (12.0-16.0) g/dl Hct 43.4 (37.0-47.0) % MCV 81.9 (80.0-98.0) fL MCH 27.2 (27.0-33.0) pg MCHC 33.2 (31.0-35.0) g/dl RDW 14.2 (11.0-16.0) % Plt Count 147 L D (160-400) X10*3/uL MPV 10.0 (9.4-12.3) fL Absolute Nucleated RBC 0.000 (0.0-0.012) X10*3/uL Nucleated RBC % (auto) 0.0 (0.0-0.2) /100WBC Sodium 136 (135-145) mmol/L Potassium 4.8 D (3.3-5.1) mmol/L Chloride 99 (96-108) mmol/L Carbon Dioxide 25 (22-29) mmol/L Anion Gap 17 (12-20) BUN 11 (9-16) mg/dL Creatinine 0.78 (0.5-1.4) mg/dL Estim Creat Clear Calc 72.4 Estimated GFR > 60 Random Glucose 259 H (60-115) mg/dL Calcium 9.0 D (8.4-10.2) mg/dL COVID-19 (ANNITA) Negative (Negative) COVID-19 Clin Com See Note Discharge Plan Discharge Clinical Impression: Ana infection Patient Disposition: Home, Self-Care Instructions: Yeast Infection (ED) Additional Instructions: Follow up with your primary care provider. Return to the emergency department immediately if your symptoms worsen or if you develop any dizziness, shortness of breath, difficulty breathing, chest pain, blurry vision, loss of vision, nausea, vomiting, abdominal pain, fever, chills, back pain, or any other complaints. Prescriptions: New fluconazole [Diflucan] 150 mg tablet 150 mg PO Q3D Qty: 2 0RF No Action oxycodone 5 mg tablet 5 mg PO Q6H PRN (Reason: Pain, Moderate) Qty: 20 0RF prochlorperazine maleate [Compazine] 10 mg tablet 10 mg PO Q8H PRN (Reason: nausea and vomiting) Qty: 10 0RF lorazepam [Ativan] 1 mg tablet 1 mg PO TID PRN (Reason: anxiety) Qty: 14 0RF metformin 500 mg tablet 500 mg PO BID Qty: 60 0RF Referrals: Desmond Ramachandran III, MD [Primary Care Provider] - Interventions: ED Discharge Assessment Last Done: 04/06/22 15:55 Discharge Date/Time: 04/06/22 15:56 Print Language: Lithuanian
[2022-04-06 15:04] LABS: COVID-19 Test Negative (Negative); IDNOW Serial# 16C4AD1C
[2022-04-06 15:05] LABS: Anion Gap 17 (12-20); Blood Urea Nitrogen 11 mg/dL (9-16); Carbon Dioxide 25 mmol/L (22-29); Chloride 99 mmol/L (96-108); Creatinine Clr Calc Pharmacy 72.4; Estimated Glomerular Filt Rate > 60; Glucose Random 259 mg/dL (60-115); Potassium 4.8 mmol/L (3.3-5.1); Sodium 136 mmol/L (135-145)
== END 2022-04-06 15:56 | disposition home or self-care (01) ==
PROVIDERS: Emergency Provider Student in an Organized Health Care Education/Training Program; PCP Internal Medicine
DX: B37.3 Candidiasis of vulva and vagina (principal); Z20.822 Contact with and (suspected) exposure to COVID-19; Z79.899 Other long term (current) drug therapy
CPT/HCPCS: 80048; 85027; 87635; 99282; 99283

== ENCOUNTER 2023-09-05 17:55 | Emergency (ER) | payer MEDICARE, MEDICAID, SELFPAY ==
--- NOTE | ~2023-09-05 | XR_ITS ---
EXAMINATION: XR SHOULDER, RIGHT CLINICAL INFORMATION: Reason for Exam fall COMPARISON: None TECHNIQUE: Three views of the shoulder. FINDINGS: No acute fracture or dislocation. Moderate degenerative changes of the shoulder with loss of acromioclavicular and glenohumeral joint space. Tiny calcification in the subacromial joint space may reflect sequelae of hydroxyapatite deposition disease. XR/XR shoulder RT min 2V IMPRESSION: 1. No acute fracture or dislocation. 2. Moderate degenerative changes of the shoulder. 3. Tiny calcification in the subacromial joint space may reflect sequelae of hydroxyapatite deposition disease.
--- NOTE | ~2023-09-05 | XR_ITS ---
EXAMINATION: XR HIP, RIGHT CLINICAL INFORMATION: Reason for Exam pain COMPARISON: None. TECHNIQUE: Two views of the hip and one view of the pelvis FINDINGS: No acute fracture or dislocation. Moderate osteoarthritis of the pubic symphysis with loss of joint space. Hip and sacroiliac joint spaces are maintained. Calcified phleboliths in the pelvis. Mesh from prior hernia repair overlies the pelvis. XR/XR hip RT w PEL1V IMPRESSION: 1. No acute fracture or dislocation. 2. Moderate osteoarthritis of the pubic symphysis with loss of joint space.
--- NOTE | ~2023-09-05 | CT_ITS ---
EXAMINATION: CT ABDOMEN AND PELVIS WITHOUT CONTRAST CLINICAL INFORMATION: Fall with right lower quadrant pain and question of a hematoma COMPARISON: CT abdomen pelvis 08/15/2021 TECHNIQUE: Multidetector volumetric imaging was performed from the superior aspect of the liver through the pubic symphysis. Sagittal and coronal reformatted images were obtained on the technologist's workstation. This CT examination was performed using dose optimization techniques as appropriate, variously including the following: *Automated exposure control *Adjustment of mA and/or kV according to patient size (this includes techniques or standardized protocols for targeted exams where dose is matched to indication/reason for exam; i.e. extremities or head) *Use of iterative reconstruction technique DLP: 603 mGy-cm FINDINGS: LUNG BASES: Bronchial wall thickening is present most marked in the right lower lobe with some bronchial plugging and distal opacities with groundglass change, new when compared to 08/15/2021. No pleural effusions. No suspicious lung masses. Calcified granuloma present at the right lung base. LIVER, GALLBLADDER, AND BILIARY TREE: The liver is normal in size, shape, and attenuation. No focal hepatic lesion or biliary ductal dilatation is present. Status post cholecystectomy. PANCREAS: Unremarkable. SPLEEN: Unremarkable. ADRENAL GLANDS: Left adrenal gland is symmetrically enlarged. The right appears normal. Findings are unchanged when compared to the 2020. KIDNEYS AND URETERS: The kidneys are normal in size, shape, and attenuation. No hydronephrosis, hydroureter, or calculi seen. No perinephric stranding. BLADDER: Unremarkable. GASTROINTESTINAL TRACT: The small and large bowel are unremarkable. The appendix is unremarkable. ABDOMINAL WALL: No significant hernia is appreciated. Tiny periumbilical hernia seen containing only fat. No abdominal wall or pelvic hematoma is seen. LYMPH NODES: No retroperitoneal lymphadenopathy. VASCULAR: Calcific atherosclerotic changes are present in the aorta and iliofemoral vessels. There is no evidence of an abdominal aortic aneurysm. PELVIC VISCERA: The uterus and adnexa are unremarkable. OSSEOUS STRUCTURES: No fractures. No bony destructive lesions. CT/CT abdomen pelvis wo IV con IMPRESSION: 1. No evidence of a hematoma. 2. Incidental note made of bronchial wall thickening with some bronchial plugging and distal opacities with groundglass change in the right lower lobe. 3. Other incidental findings as described above including stable enlargement of the left adrenal gland. Fleischner guidelines were followed.
[2023-09-05 18:09] VITALS: BP 169/86; PULSE 91; RESP 20; TEMP 36.1; O2SAT 97; BMI 30.2
--- NOTE | 2023-09-05 18:10 | ED.GENADULT ---
HPI - General Adult General Chief complaint: Fall Stated complaint: slipped t-1, R side hip/ shoulder/ neck pain Time Seen by Provider: 09/05/23 19:01 Source: patient Mode of arrival: ambulatory Limitations: no limitations History of Present Illness HPI narrative: 58-year-old female came in for evaluation after a mechanical fall yesterday. Patient is slipped and fell landing on her right shoulder and right hip, reported very mild head injury with no LOC, the fall was yesterday patient was able to ambulate has no vomiting or headache today, patient now is complaining of more pain to the right shoulder and right hip, no AC. no cough, no fever, no sick contact, no flu like symptoms. Related Data Previous Rx's Medication Instructions Recorded oxycodone 5 mg tablet 5 mg PO Q6H PRN Pain, Moderate #20 09/07/20 tabs lorazepam 1 mg tablet (Ativan) 1 mg PO TID PRN anxiety #14 tabs 08/08/21 metformin 500 mg tablet 500 mg PO BID #60 tabs 08/08/21 prochlorperazine maleate 10 mg 10 mg PO Q8H PRN nausea and 08/08/21 tablet (Compazine) vomiting #10 tabs fluconazole 150 mg tablet 150 mg PO Q3D 2 doses #2 tabs 04/06/22 (Diflucan) Allergies Allergy/AdvReac Type Severity Reaction Status Date / Time alcohol [ALCOHOL] Allergy Unknown SWELLING Verified 09/05/23 18:09 (FACIAL) duloxetine [From CYMBALTA] Allergy Unknown UNKNOWN Verified 09/05/23 18:09 pregabalin [From LYRICA] Allergy Unknown UNKNOWN Verified 09/05/23 18:09 shellfish derived Allergy Unknown UNKNOWN Verified 09/05/23 18:09 [SHELLFISH DERIVED] ketorolac [From Toradol] Allergy Rash Verified 09/05/23 18:09 tramadol Allergy Hives Verified 09/05/23 18:09 ondansetron [From Zofran] AdvReac Vomiting Verified 09/05/23 18:09 Review of Systems Review of Systems: All other systems are reviewed and are negative Constitutional: Reports as per HPI and Reports no additional constitutional complaints Eyes: Reports as per HPI and Reports no additional eye complaints Reports system reviewed and no additional complaints, except as documented Cardiovascular: Reports as per HPI and Reports no additional cardiovascular complaints Respiratory: Reports as per HPI and Reports no additional respiratory complaints Gastrointestinal: Reports as per HPI and Reports no additional gastrointestinal complaints Genitourinary: Reports no additional female genitourinary complaints Musculoskeletal: Reports no additional musculoskeletal complaints Skin/Breast: Reports system reviewed and no additional complaints, except as docu Psychiatric: Reports no additional psychiatric complaints Endocrine: Reports no additional endocrine complaints Hematologic/Lymphatic: Reports no additional hematologic/lymphatic complaints Allergic/Immunologic: Reports no additional allergic/immunologic complaints Reports system reviewed and no additional complaints, except as documented and Reports Abnormal speech present [facility] Past Medical History Onset Date is defined in the Problem List Problems that require an onset date and time if occurred within 24 hrs of arrival to the ED Aortic Dissection and Rupture; Neurologic impairment; Cardiopulmonary Arrest; Endotracheal Intubation; Insertion or Replacement of Mechanical Circulatory Assist Device Medical History Diabetes IV drug abuse Hepatitis Heroin abuse Anxiety Gastroparesis Gastro-esophageal reflux Leukocytosis Low back pain HTN (hypertension) Surgical History H/O tubal ligation Hx of cholecystectomy History of left shoulder replacement Social History Social History Unable to assess alcohol history related to: Unknown Patient Tobacco Use Status: Never used Tobacco Advance Directives: Yes Advance Directives Information Provided: No Advance Directives on File: No Patient : No Physical Exam ED Vital Signs: Vital Signs - 24 hr 09/05/23 20:00 09/05/23 21:33 Temperature 98.1 F Pulse Rate 81 87 Respiratory Rate 16 Blood Pressure 162/84 H 176/91 H Pulse Oximetry 97 95 Oxygen Delivery Method Room Air Room Air BMI result Body Mass Index 30.2 Vital signs have been reviewed and appear to be correct. Blood pressure elevated. Heart rate normal. Respiratory rate normal. Temperature normal. Oxygen saturation normal. Appearance: Alert. Oriented X3. No acute distress. Head: Normal external exam. Normocephalic. Atraumatic. No Vale signs noted. No raccoon eyes noted Eyes: PERRLA. EOMI. Conjunctiva and sclera normal. Eyelids normal. ENT: TM's Normal. Pharynx normal. Uvula midline. Moist mucous membranes. No trismus noted. No drooling noted. No muffled voice noted. Neck: Normal inspection. Neck supple. FROM. No adenopathy. Thyroid Normal. No meningeal signs. No neck mass noted. CVS: Normal heart rate and rhythm. Heart sound normal. No murmurs noted. Pulses normal throughout. Respiratory: No respiratory distress. Painless inspiration. Breath sounds normal. No wheezes/rales/rhonchi noted. Chest nontender. No accessory muscle usage noted or decreased air movement noted. Abdomen: Soft and nontender. Bowel sounds normal in all 4 quadrants. No distention noted. No organomegaly noted. No visible injury noted. Back: No CVA tenderness. Full range of motion noted. Skin: Skin warm and dry. Normal skin color. Normal skin turgor. No rashes/lesions/lacerations noted. Extremities: Right shoulder: Held in abduction position with tender abduction, no step-off, no deformity Right hip: No deformity, no step-off, neurovascularly intact. Neuro: Oriented X 3. Cranial nerve exam: II-XII are grossly intact No motor deficit. No sensory deficit. Reflexes normal. Course Course Course Narrative: RME- 58 old female presents for evaluation right shoulder, hip pain neck pain. She reports slipping on ice and falling yesterday. Her right-sided neck pain or started today. Her pain is lateral. Plan for x-rays Reevaluation(s) Reevaluation #1: Mechanical fall after slipped on the ice complaining of right shoulder, right hip pain no evidence of fracture or dislocation on x-ray. Patient had abdominal CT showed no intra-abdominal hematoma or injury, incidental findings suggest pneumonia vs viral pneumonia patient sustain no symptoms to support the above findings hence no intervention is indicated, instructed to return if devolops fever,cough, or sob. Patient feels better with Dilaudid injection. Time: 20:30 Medications Administered Discontinued Medications Generic Name Dose Route Start Last Admin Trade Name Freq PRN Reason Stop Dose Admin Hydromorphone HCl 2 mg 09/05/23 21:21 09/05/23 21:34 Hydromorphone Hcl 2 Mg/Ml Vial IM 09/05/23 21:22 2 mg ONCE ONE Administration Protocol Medical Decision Making Differential Diagnosis Differential Diagnoses: The differential diagnosis associated with the presentation includes (Shoulder fracture, shoulder dislocation, hip fracture, hip dislocation, contusion, intracranial bleed.) Admission/Observation Consideration of admission/observation: Escalation of care including admission/observation considered Independent Interpretation I performed an independent interpretation of an: Plain X-Ray (Right shoulder/right hip no acute fracture.) and CT Scan (Head/abdomen/pelvis: 1. No evidence of a hematoma. 2. Incidental note made of bronchial wall thickening with some bronchial plugging and distal opacities with groundglass change in the right lower lobe. 3. Other incidental findings as described above including stable enlargement of the left adren) Radiology Impression Discussion of test interpretation with radiology: I have reviewed the radiologist's reading. Discharge Plan Discharge Clinical Impression: Contusion of right shoulder, Contusion of right hip, Closed head injury Patient Disposition: Home, Self-Care Instructions: Contusion in Adults (ED) Prescriptions: No Action oxycodone 5 mg tablet 5 mg PO Q6H PRN (Reason: Pain, Moderate) Qty: 20 0RF prochlorperazine maleate [Compazine] 10 mg tablet 10 mg PO Q8H PRN (Reason: nausea and vomiting) Qty: 10 0RF lorazepam [Ativan] 1 mg tablet 1 mg PO TID PRN (Reason: anxiety) Qty: 14 0RF metformin 500 mg tablet 500 mg PO BID Qty: 60 0RF fluconazole [Diflucan] 150 mg tablet 150 mg PO Q3D Qty: 2 0RF Interventions: ED Discharge Assessment Last Done: 09/05/23 22:43 Discharge Date/Time: 09/05/23 22:43
[2023-09-05 20:00] VITALS: BP 162/84; PULSE 81; RESP 16; TEMP 36.7; O2SAT 97
[2023-09-05 21:33] VITALS: BP 176/91; PULSE 87; O2SAT 95
[2023-09-05] MEDS: HYDROmorphone HCl 2 MG/ML VIAL IM (21:34)
== END 2023-09-05 22:43 | disposition home or self-care (01) ==
PROVIDERS: Emergency Provider Emergency Medicine
DX: S40.011A Contusion of right shoulder, initial encounter (principal); S70.01XA Contusion of right hip, initial encounter; S09.90XA Unspecified injury of head, initial encounter; M25.551 Pain in right hip; M25.511 Pain in right shoulder; R10.2 Pelvic and perineal pain; W01.0XXA Fall on same level from slipping, tripping and stumbling without subsequent striking against object, initial encounter; Y93.9 Activity, unspecified; Y92.9 Unspecified place or not applicable; Y99.8 Other external cause status
CPT/HCPCS: 73030; 73502; 74176; 96372; 99284; J1170

== ENCOUNTER 2024-05-11 16:25 | Emergency (ER) | payer MEDICARE, MEDICAID, SELFPAY ==
--- NOTE | ~2024-05-11 | CT_ITS ---
EXAMINATION: CT ABDOMEN AND PELVIS WITH CONTRAST CLINICAL INFORMATION: Lower abdominal pain. Colitis. COMPARISON: CT abdomen and pelvis from 08/07/2021. TECHNIQUE: Multidetector volumetric imaging was performed through the abdomen and pelvis after the administration of 100 mL of Omnipaque 350 intravenous contrast. Sagittal and coronal reformatted images were obtained on the technologist's workstation. This CT examination was performed using dose optimization techniques as appropriate, variously including the following: *Automated exposure control. *Adjustment of mA and/or kV according to patient size (this includes techniques or standardized protocols for targeted exams where dose is matched to indication/reason for exam; i.e. extremities or head). *Use of iterative reconstruction technique. DLP: 634 mGy-cm. FINDINGS: Lower Chest: Mild bilateral dependent atelectasis. Otherwise, no diffuse or focal parenchymal abnormalities in the visualized lung bases. No demonstrated abnormalities of the visualized cardiac structures. Coronary artery calcifications: Present - mild. Liver, Biliary Ducts, and Gallbladder: The liver is normal in size. Chronic focal fatty infiltration along the inferior margin of the right hepatic lobe. Otherwise, normal hepatic attenuation without additional focal hepatic lesions or biliary ductal dilatation. Prior cholecystectomy. Pancreas: The pancreas is normal in appearance. Adrenal Glands: Chronic hypertrophic changes of the adrenal glands with macronodular contours. Spleen: The spleen is normal in appearance. Kidneys and Ureters: The kidneys demonstrate symmetric nephrograms without evidence of nephrolithiasis or hydronephrosis. No ureterolithiasis or hydroureter. Urinary Bladder: The urinary bladder is partially distended without focal wall thickening. No bladder calculi are demonstrated. Gastrointestinal System: The stomach is decompressed and therefore not well evaluated on this exam. The small bowel is of normal caliber without regions of abnormal wall enhancement. Moderate sigmoid diverticulosis. Otherwise, the colon is normal in appearance without focal wall thickening or pericolonic inflammatory change. Normal appendix. Genitourinary: No demonstrated adnexal soft tissue masses. Intra-abdominal and Retroperitoneal Spaces: No intra-abdominal free fluid collections or gas. No mesenteric, retroperitoneal, or inguinal lymphadenopathy. Vasculature: The abdominal aorta is of normal contour and caliber with moderate calcific atherosclerotic disease. Musculoskeletal: Moderate multilevel degenerative changes of the spine. No lytic or sclerotic osseous lesions demonstrated. No soft tissue masses demonstrated. CT/CT abdomen pelvis w IV con IMPRESSION: 1. Diverticulosis without evidence of diverticulitis. 2. No additional CT abnormalities of the abdomen and pelvis to explain the patient's symptoms. 3. Chronic hypertrophic changes of the adrenal glands with macronodular contours. Electronically signed by: Andrews Greenwood DO 05/12/2024 01:32 AM EDT
--- NOTE | ~2024-05-11 | MR_ITS ---
EXAMINATION: MR LUMBAR SPINE WITHOUT AND WITH CONTRAST CLINICAL INFORMATION: pyomyositis paraspinal muscle epidural abscess? COMPARISON: CT abdomen and pelvis 09/05/2023 TECHNIQUE: MRI of the lumbar spine was obtained using routine sequences with and without contrast. Intravenous contrast: Gadavist 7 mL FINDINGS: Lumbar straightening. Trace anterolisthesis of L3 on L4. No suspicious marrow signal or focal osseous lesion. Mild left-sided endplate marrow edema at L4-L5. The vertebral body heights are maintained. Multilevel disc dessication and height loss. The conus medullaris terminates at the level of L2-L3. The distal spinal cord is normal in appearance. The cauda equina nerve roots appear normal. Thin fatty infiltration of the filum terminale. No abnormal intradural enhancement. No epidural or paraspinal fluid collection. No significant abnormalities of the paraspinal musculature. Symmetric atrophy of the visualized gluteal musculature. Stable enlargement of the left adrenal gland compared to CT from 09/05/2023. The abdominal aorta is of normal contour and caliber. SPINAL LEVELS: L1-L2: No significant spinal canal or neuroforaminal narrowing. L2-L3: Shallow disc bulge with superimposed left foraminal and extraforaminal protrusion. No significant central spinal canal stenosis. Mild to moderate left neural foraminal narrowing L3-L4: Facet arthropathy with left facet periarticular enhancement, most likely reflecting synovitis in the setting of degenerative arthritis. Trace anterolisthesis. Mild central spinal canal stenosis and bilateral subarticular zone narrowing. No significant neural foraminal narrowing L4-L5: Disc osteophyte complex. Facet arthropathy. No significant central spinal canal stenosis. Right greater than left subarticular zone narrowing with possible impingement of the traversing L5 nerve roots. Mild right and moderate left neural foraminal narrowing L5-S1: No significant spinal canal or neuroforaminal narrowing. Facet arthropathy. MR/MR lumbar spine wo/w con IMPRESSION: 1. No evidence of acute infection of the lumbar spine including paraspinal/epidural abscess or discitis/osteomyelitis. 2. Multilevel degenerative changes of the lumbar spine as detailed above. No high-grade spinal canal or neural foraminal narrowing. Periarticular enhancement and facet arthropathy involving the left L3-L4 facet joint, likely reflecting degenerative arthritis 3. Borderline low positioning of the conus medullaris which terminates at L2-L3. Electronically signed by: Fredi Hernandez MD 05/11/2024 08:44 PM EDT RP
[2024-05-11 16:50] VITALS: BP 160/75; PULSE 82; RESP 18; TEMP 36.6; O2SAT 97; BMI 26.5
--- NOTE | 2024-05-11 16:56 | ED_ITS ---
HPI - General Adult General Chief complaint: General Medical Stated complaint: bloody stools, abd, back pain ,abnormal labs Time Seen by Provider: 05/11/24 17:56 History of Present Illness ED Provider: Manoj Jensen HPI narrative: 59-year-old female with past medical history of hepatitis, IV drug use/heroin use, GERD, presents to the ED for abdominal pain, bloddy diarrhea yesterday, and back pain since last saturday. Patient was admitted on Saturday on [facility] and then signed out AMA on Saturday. Related Data Home Medications ?Medication ?Instructions ?Recorded ?Confirmed albuterol sulfate 90 mcg/actuation 2 puff inhalation Q4H PRN 05/12/24 aerosol inhaler Shortness Of Breath Or Wheezing amlodipine 10 mg tablet 10 mg PO DAILY 05/12/24 insulin glargine 100 unit/mL (3 10 unit subcut BEDTIME 05/12/24 mL) subcutaneous pen (Basaglar KwikPen U-100 Insulin) lorazepam 1 mg tablet 1 mg PO BID PRN Anxiety 05/12/24 metformin 500 mg tablet,extended 500 mg PO BID 05/12/24 release 24 hr metoprolol tartrate 25 mg tablet 25 mg PO BID 05/12/24 olmesartan 20 mg tablet 20 mg PO DAILY 05/12/24 semaglutide 0.25 mg or 0.5 mg (2 0.25 mg subcut QWEEK 05/12/24 mg/3 mL) subcutaneous pen injector (Ozempic) Allergies Allergy/AdvReac Type Severity Reaction Status Date / Time alcohol [ALCOHOL] Allergy Unknown SWELLING Verified 05/11/24 16:54 (FACIAL) duloxetine [From CYMBALTA] Allergy Unknown UNKNOWN Verified 05/11/24 16:54 pregabalin [From LYRICA] Allergy Unknown UNKNOWN Verified 05/11/24 16:54 shellfish derived Allergy Unknown UNKNOWN Verified 05/11/24 16:54 [SHELLFISH DERIVED] ketorolac [From Toradol] Allergy Rash Verified 05/11/24 16:54 tramadol Allergy Hives Verified 05/11/24 16:54 ondansetron [From Zofran] AdvReac Vomiting Verified 05/11/24 16:54 Review of Systems 2 Review of Systems: low back pain, abdominal pain, resolved blood diarrhea Yes all other systems are reviewed and are negative PMFSH Past Medical History Medical History Diabetes IV drug abuse Hepatitis Heroin abuse Anxiety Gastroparesis Gastro-esophageal reflux Leukocytosis Low back pain HTN (hypertension) Surgical History H/O tubal ligation Hx of cholecystectomy History of left shoulder replacement Social History Social History Unable to assess alcohol history related to: Unknown Patient Tobacco Use Status: Never used Tobacco Smoked in Last 30 Days: Yes Use of substances other than those prescribed or required for medical reasons: No Advance Directives: No Advance Directives Information Provided: Yes Do you have a plan to hurt others: No Plan Patient : No Physical Exam ED Vital Signs: Vital Signs - 24 hr 05/11/24 23:56 05/12/24 00:15 05/12/24 00:22 Temperature Pulse Rate Respiratory Rate Blood Pressure 216/103 H 226/77 H 226/77 H Pulse Oximetry Oxygen Delivery Method 05/12/24 00:59 05/12/24 01:12 05/12/24 04:31 Temperature 98.7 F Pulse Rate 72 66 Respiratory Rate 21 H 16 Blood Pressure 206/70 H 196/75 H 180/77 H Pulse Oximetry 98 97 Oxygen Delivery Method Room Air Room Air 05/12/24 07:18 05/12/24 09:04 05/12/24 10:18 Temperature 97.7 F 97.7 F 97.7 F Pulse Rate 64 72 72 Respiratory Rate 14 12 12 Blood Pressure 193/105 H 163/91 H 163/91 H Pulse Oximetry 94 97 97 Oxygen Delivery Method Room Air Room Air Room Air BMI result Body Mass Index 26.5 Const General: cooperative, healthy appearing, comfortable, no acute distress, well developed, alert, awake and Physically active Orientation/consciousness: patient oriented x3 HENMT Head: Yes normal to inspection, Yes No palpable skull fracture present, Yes normocephalic, Yes atraumatic and No abrasion Eyes General: appearance normal, both eyes and all related structures Neck Neck: Yes normal visual inspection, Yes full ROM, Yes no lymphadenopathy, Yes no meningeal signs, Yes trachea midline, Yes supple, No anterior neck swelling and No tender Chest Chest palpation & inspection: normal inspection of the chest and normal palpation of entire chest wall Resp Effort & Inspection: normal respiratory effort and able to speak in complete sentences Auscultation: clear to auscultation bilaterally Cardio Jugular venous distension: no JVD Heart sounds: S1 normal heart sound present and S2 normal heart sound present GI Inspection: Yes normal to inspection Palpation (GI): Soft to palpation, not firm, Tenderness to palpation present (GI) in the LLQ and in the RLQ, no guarding and not rigid General: Yes no CVA tenderness Back/Spine/Pelvis Back: no CVA tenderness and No back tenderness Skin General skin exam: no rashes or lesions noted, elasticity normal and turgor normal Neuro General: patient oriented x3, gait normal, tone normal, moves all extremities, Normal light touch and pain sensation, no meningeal signs, no focal motor deficits, CN's II-XI intact bilaterally and normal sensation to monofilament Extrem General: Yes normal to inspection, Yes full ROM and Yes capillary refill normal Psych Appearance: grossly normal, well kempt and not disheveled Course Course Course Narrative: RME performed by Rosemary Meyers PA-C. Patient is a 59 year old assigned female at presenting to the emergency department with bloody diarrhea and low back pain. Patient states she was recently at [facility] and signed out against medical advice because the bed at [facility] was very uncomfortable. Detailed physical exam and review of systems are deferred to the medical record transcriber. Labs ordered. Patient placed back in the waiting room pending room availability and results. shirt line operator aware. I reviewed the patient's [facility] records. She left against medical advice on 05/09/2024. Was admitted for possible pyomyositis of the paraspinal muscle. [facility] notes indicate the patient has ongoing IV drug abuse / use of opiates. Medications Administered Discontinued Medications Generic Name Dose Route Start Last Admin Trade Name Collinsq PRN Reason Stop Dose Admin Clonidine HCl 0.2 mg 05/12/24 00:11 05/12/24 00:22 Clonidine Hcl 0.2 Mg Tablet PO 05/12/24 00:12 0.2 mg ONCE ONE Administration Protocol Diphenhydramine HCl 50 mg 05/12/24 00:11 05/12/24 00:23 Diphenhydramine Hcl 50 Mg/Ml Vial IVPUSH 05/12/24 00:12 50 mg ONCE ONE Administration Gadobutrol 7.5 ml 05/11/24 20:02 05/11/24 20:02 Gadobutrol 7.5 Ml Vial IVPUSH 05/11/24 20:03 7 ml ONCE ONE Administration Hydromorphone HCl 0.5 mg 05/11/24 19:01 05/11/24 19:08 Hydromorphone Hcl 0.5 Mg/0.5 Ml Syringe IVPUSH 05/11/24 19:02 0.5 mg ONCE ONE Administration Protocol Vancomycin HCl 1,000 mg/ 535 mls @ 267.5 mls/hr 05/11/24 18:37 05/11/24 22:30 Vancomycin HCl 750 mg/ Sodium IV 05/11/24 20:36 Infused Chloride ONCE ONE Infusion Piperacillin Sod/Tazobactam 50 mls @ 100 mls/hr 05/11/24 18:37 05/11/24 20:25 Sod 3.375 gm/ Sodium Chloride IV 05/11/24 19:06 Infused ONCE ONE Infusion Sodium Chloride 1,000 mls @ 999 mls/hr 05/11/24 19:21 05/11/24 21:50 Ns IV 05/11/24 20:21 Infused .Q1H1M STA Infusion Iohexol 100 ml 05/11/24 22:14 05/11/24 22:14 Iohexol 350 Mg/Ml 100 Ml Infus..Btl IV 05/11/24 22:15 100 ml ONCE ONE Administration Lorazepam 2 mg 05/11/24 19:16 05/11/24 19:18 Lorazepam 2 Mg/Ml Vial IVPUSH 05/11/24 19:17 2 mg ONCE ONE Administration Lorazepam 1 mg 05/12/24 00:11 05/12/24 00:23 Lorazepam 2 Mg/Ml Vial IVPUSH 05/12/24 00:12 1 mg STAT STA Administration Lorazepam 1 mg 05/12/24 01:17 05/12/24 01:52 Lorazepam 2 Mg/Ml Vial IVPUSH 05/12/24 01:18 1 mg STAT STA Administration Methadone HCl 40 mg 05/12/24 01:17 05/12/24 01:51 Methadone Hcl 20 Mg/2 Ml Oral.Conc PO 05/12/24 01:18 40 mg ONCE ONE Administration Metoclopramide HCl 10 mg 05/11/24 23:33 05/11/24 23:44 Metoclopramide Hcl 10 Mg/2 Ml Vial IVPUSH 05/11/24 23:34 10 mg ONCE ONE Administration Medical Decision Making Medical Decision Making [facility] Narrative: 59-year-old female presents to ED for back pain with possible paraspinal abscess/epidural abscess presents to as low back pain that has abdominal pain. I reviewed patient's [facility] notes. Patient was seen at [facility] for same presentation was being treated as possible paraspinal myositis infection possibility seen on MRI although ID consulted states MRI had to be repeated due to patient not being cooperative and imaging being inconclusive. Patient was started on antibiotics at [facility]. And patient has signed out AMA. I reviewed patient's labs from [facility] which had negative blood cultures and ID fit for antibiotics. And maybe resume if repeat MRI showed myositis of the paraspinal muscle. Repeat MRI ordered negative for any paraspinal myositis abscess or any epidural abscess or cauda equinus. Rectal exam negative for week for the tone. Patient is sent for CT scan for lower belly pain. To occult negative. Dr. oMnzon states patient d 12:16am: Patient hypertensive. Patient abdominal cramping, sneezing, restless legs, and vomiting. Patient also had 1 episode of explosive diarrhea. Patient denies still using IV drug use or fentanyl, but [facility] notes indicate that patient has used IV fentanyl from the street at home after her oral pain meds were done. She will be treated as opiate withdrawal as consistent with symptoms of diarrhea, abdominal cramping, vomiting, sweating and hypertension. Abdominal CT scan pending. As per up-to-date clonidine, Ativan, and Benadryl can be given. Spoke with Dr. Monzon who states patient does not need admission due to MRI negative. 1:20am: Patient is agreeable to methadone 40 mg for emergency use and request ativan to calm her down. Patient feels like skin crawling. Patient agreeable for detox. Abdominal CT scan normal Differential Diagnosis Differential Diagnoses: The differential diagnosis associated with the presentation includes (Epidural abscess, cauda equinus syndrome, paraspinal abscess, colitis, opiate withdrawal) Admission/Observation Consideration of admission/observation: Escalation of care including admission/observation considered Consult Healthcare Provider Management of the patient was discussed with: Hospitalist (Dr. Monzon) Lab Data [facility] Lab Attestation statement: I reviewed the patient's lab results. 05/11/24 18:48 05/11/24 18:48 Labs: Lab Results 05/11/24 05/11/24 05/11/24 Range/Units 18:32 18:48 18:56 WBC 9.8 (4.8-10.8) X10*3/uL RBC 5.07 (4.20-5.50) X10*6/uL Hgb 14.5 (12.0-16.0) g/dl Hct 41.6 (37.0-47.0) % MCV 82.1 (80.0-98.0) fL MCH 28.6 (27.0-33.0) pg MCHC 34.9 (31.0-35.0) g/dl RDW 13.6 (11.0-16.0) % Plt Count 261 D (160-400) X10*3/uL MPV 9.4 (9.4-12.3) fL Immature Gran % (Auto) 0.4 (0.0-0.4) % Neut % (Auto) 45.8 (45-73) % Lymph % (Auto) 40.1 H (20-40) % Smyth % (Auto) 9.5 (2-11) % Eos % (Auto) 3.6 (0-4) % Baso % (Auto) 0.6 (0-2) % Lymph # (Auto) 3.9 (1.2-4.9) X10*3/uL Smyth # (Auto) 0.9 (0.1-1.2) X10*3/uL Eos # (Auto) 0.4 (0.0-0.4) X10*3/uL Baso # (Auto) 0.1 (0.0-0.2) X10*3/uL Abs Immat Gran (auto) 0.04 H (0.00-0.03) X10*3/uL Absolute Neuts (auto) 4.5 (2.0-8.3) x10*3/uL Absolute Nucleated RBC 0.000 (0.0-0.012) X10*3/uL Nucleated RBC % (auto) 0.0 (0.0-0.2) /100WBC ESR 10 (0-20) MM/HR PT 11.5 (10.9-12.4) SEC INR 1.0 (0.9-1.1) APTT 26.4 (26.0-36.8) SEC Sodium 139 (135-145) mmol/L Potassium 3.6 (3.3-5.1) mmol/L Chloride 102 (96-108) mmol/L Carbon Dioxide 27 (22-29) mmol/L Anion Gap 14 (12-20) BUN 17 H (9-16) mg/dL Creatinine 0.84 (0.5-1.4) mg/dL Estim Creat Clear Calc 62.6 Estimated GFR > 60 Random Glucose 146 H (60-115) mg/dL Lactic Acid 2.3 H* (0.5-2.0) mmol/L Lactic Acid F/U @ 2Hr (0.5-2.0) mmol/L Calcium 9.2 (8.4-10.2) mg/dL Magnesium 1.9 (1.6-2.6) mg/dL Total Bilirubin 0.3 (0.0-1.0) mg/dL AST 21 (5-31) U/L ALT 25 (0-31) U/L Alkaline Phosphatase 95 (39-117) U/L C-Reactive Protein 0.48 (< or = 0.50) mg/dL Total Protein 6.9 (6.5-8.0) g/dL Albumin 4.0 (3.5-5.0) g/dL Urine Color Urine Appearance Urine pH (5.0-9.0) Ur Specific [place] (1.005-1.025) Urine Protein (Neg-Trace) mg/dL Urine Glucose (UA) (Negative) mg/dL Urine Ketones (Negative) mg/dL Urine Blood (Negative) Urine Nitrite (Negative) Ur Leukocyte Esterase (Negative) Stool Occult Blood NEGATIVE (NEGATIVE) Urine Opiates Screen (Not Detect) Ur Buprenorphine Scrn (Not Detect) ng/mL Ur Oxycodone Screen (Not Detect) ng/mL Urine Methadone Screen (Not Detect) ng/mL Urine Fentanyl Screen (Not Detect) Ur Barbiturates Screen (Not Detect) Ur Phencyclidine Scrn (Not Detect) Ur Amphetamines Screen (Not Detect) U Benzodiazepines Scrn (Not Detect) Urine Cocaine Screen (Not Detect) U Marijuana (THC) Screen (Not Detect) Blood Type O Positive Antibody Screen NEGATIVE 05/11/24 05/11/24 Range/Units 21:30 22:45 WBC (4.8-10.8) X10*3/uL RBC (4.20-5.50) X10*6/uL Hgb (12.0-16.0) g/dl Hct (37.0-47.0) % MCV (80.0-98.0) fL MCH (27.0-33.0) pg MCHC (31.0-35.0) g/dl RDW (11.0-16.0) % Plt Count (160-400) X10*3/uL MPV (9.4-12.3) fL Immature Gran % (Auto) (0.0-0.4) % Neut % (Auto) (45-73) % Lymph % (Auto) (20-40) % Smyth % (Auto) (2-11) % Eos % (Auto) (0-4) % Baso % (Auto) (0-2) % Lymph # (Auto) (1.2-4.9) X10*3/uL Smyth # (Auto) (0.1-1.2) X10*3/uL Eos # (Auto) (0.0-0.4) X10*3/uL Baso # (Auto) (0.0-0.2) X10*3/uL Abs Immat Gran (auto) (0.00-0.03) X10*3/uL Absolute Neuts (auto) (2.0-8.3) x10*3/uL Absolute Nucleated RBC (0.0-0.012) X10*3/uL Nucleated RBC % (auto) (0.0-0.2) /100WBC ESR (0-20) MM/HR PT (10.9-12.4) SEC INR (0.9-1.1) APTT (26.0-36.8) SEC Sodium (135-145) mmol/L Potassium (3.3-5.1) mmol/L Chloride (96-108) mmol/L Carbon Dioxide (22-29) mmol/L Anion Gap (12-20) BUN (9-16) mg/dL Creatinine (0.5-1.4) mg/dL Estim Creat Clear Calc Estimated GFR Random Glucose (60-115) mg/dL Lactic Acid (0.5-2.0) mmol/L Lactic Acid F/U @ 2Hr 1.3 (0.5-2.0) mmol/L Calcium (8.4-10.2) mg/dL Magnesium (1.6-2.6) mg/dL Total Bilirubin (0.0-1.0) mg/dL AST (5-31) U/L ALT (0-31) U/L Alkaline Phosphatase (39-117) U/L C-Reactive Protein (< or = 0.50) mg/dL Total Protein (6.5-8.0) g/dL Albumin (3.5-5.0) g/dL Urine Color Yellow Urine Appearance Clear Urine pH 5.0 (5.0-9.0) Ur Specific [place] 1.025 (1.005-1.025) Urine Protein Negative (Neg-Trace) mg/dL Urine Glucose (UA) Negative (Negative) mg/dL Urine Ketones Negative (Negative) mg/dL Urine Blood Negative (Negative) Urine Nitrite Negative (Negative) Ur Leukocyte Esterase Negative (Negative) Stool Occult Blood (NEGATIVE) Urine Opiates Screen POSITIVE H (Not Detect) Ur Buprenorphine Scrn Not Detected (Not Detect) ng/mL Ur Oxycodone Screen Not Detected (Not Detect) ng/mL Urine Methadone Screen Not Detected (Not Detect) ng/mL Urine Fentanyl Screen POSITIVE H (Not Detect) Ur Barbiturates Screen Not Detected (Not Detect) Ur Phencyclidine Scrn Not Detected (Not Detect) Ur Amphetamines Screen Not Detected (Not Detect) U Benzodiazepines Scrn Not Detected (Not Detect) Urine Cocaine Screen Not Detected (Not Detect) U Marijuana (THC) Screen Not Detected (Not Detect) Blood Type Antibody Screen Independent Interpretation I performed an independent interpretation of an: Plain X-Ray and CT Scan Radiology Impression Discussion of test interpretation with radiology: I have reviewed the radiologist's reading. Independent Historian Clinical information obtained from an independent historian. History obtained from or confirmed by: EMS and Other (patient) External Record Review External record reviewed: Other ([facility] notes) Critical Care Time Critical Care Time Critical Care Time: Yes Total Critical Care Time: 60 Attestation: Patient initially worked up has ruled out epidural paraspinal abscess. MRI negative. Patient then started developed opiate withdrawal symptoms. Patient with denies using fentanyl but does fentanyl in her DS and also [facility] no states patient known for injecting fentanyl last use was Saturday after running out of beds. Patient has not used any drugs since. Patient became hypertensive had explosive diarrhea, and abdominal cramping. Methadone Ativan Benadryl clonidine ordered. Discharge Plan Discharge Clinical Impression: Opiate withdrawal, Back pain Patient Disposition: Home, Self-Care Instructions: Back Pain (ED), Opioid Use Disorder (ED) Additional Instructions: Your abdominal CT scan was normal. Your MRI did not show any evidence of infection. Follow up with the methadone clinic tomorrow. You were last given 40 mg of methadone today 05/12 at 01:00. If you develop new or worsening symptoms call 911 or come back to the ER for further evaluation. Prescriptions: No Action amlodipine 10 mg tablet 10 mg PO DAILY lorazepam 1 mg tablet 1 mg PO BID PRN (Reason: Anxiety) albuterol sulfate 90 mcg/actuation HFA aerosol inhaler 2 puff INHALATION Q4H PRN (Reason: Shortness Of Breath Or Wheezing) metformin 500 mg tablet extended release 24 hr 500 mg PO BID olmesartan 20 mg tablet 20 mg PO DAILY metoprolol tartrate 25 mg tablet 25 mg PO BID insulin glargine [Basaglar KwikPen U-100 Insulin] 100 unit/mL (3 mL) insulin pen 10 unit subcut BEDTIME Ozempic 0.25 mg or 0.5 mg (2 mg/3 mL) pen injector 0.25 mg subcut QWEEK Interventions: ED Discharge Assessment Last Done: 05/12/24 10:18 Discharge Date/Time: 05/12/24 10:19 Print Language: Georgian
[2024-05-11 18:39] LABS: OBS Int Ctl Valid YES; OBS1 NEGATIVE (NEGATIVE)
[2024-05-11 18:54] LABS: MANUAL DIFF FLAG NO
[2024-05-11 18:56] LABS: Basophils Absolute Auto 0.1 X10*3/uL (0.0-0.2); Basophils Percent Auto 0.6 % (0-2); Eosinophils Absolute Auto 0.4 X10*3/uL (0.0-0.4); Eosinophils Percent Auto 3.6 % (0-4); Hematocrit 41.6 % (37.0-47.0); Hemoglobin 14.5 g/dl (12.0-16.0); Imm Gran Abs Auto 0.04 X10*3/uL (0.00-0.03); Imm Gran Pct Auto 0.4 % (0.0-0.4); Lymphocytes Absolute Auto 3.9 X10*3/uL (1.2-4.9); Lymphocytes Percent Auto 40.1 % (20-40); Mean Corpuscular HGB Conc 34.9 g/dl (31.0-35.0); Mean Corpuscular Hemoglobin 28.6 pg (27.0-33.0); Mean Corpuscular Volume 82.1 fL (80.0-98.0); Mean Platelet Volume 9.4 fL (9.4-12.3); Monocytes Absolute Auto 0.9 X10*3/uL (0.1-1.2); Monocytes Percent Auto 9.5 % (2-11); Neutrophils Absolute Auto 4.5 x10*3/uL (2.0-8.3); Neutrophils Percent Auto 45.8 % (45-73); Platelet Count 261 X10*3/uL (160-400); Red Blood Count 5.07 X10*6/uL (4.20-5.50); Red Cell Distribution Width 13.6 % (11.0-16.0); White Blood Count 9.8 X10*3/uL (4.8-10.8)
[2024-05-11 19:05] LABS: Prothrombin Time 11.5 SEC (10.9-12.4)
[2024-05-11 19:08] LABS: Partial Thromboplastin Time 26.4 SEC (26.0-36.8)
[2024-05-11] MEDS: Piperacillin Sodium/Tazobactam 3.375 GM in 0.9 % Sodium Chloride 50 ML IV (19:08)
[2024-05-11] MEDS: HYDROmorphone HCl 0.5 MG/0.5 ML SYRINGE IVPUSH (19:08)
[2024-05-11 19:15] LABS: Alanine Aminotransferase 25 U/L (0-31); Alkaline Phosphatase 95 U/L (39-117); Anion Gap 14 (12-20); Aspartate Amino Transferase 21 U/L (5-31); Bilirubin Total 0.3 mg/dL (0.0-1.0); Blood Urea Nitrogen 17 mg/dL (9-16); C Reactive Protein 0.48 mg/dL (< or = 0.50); Calcium 9.2 mg/dL (8.4-10.2); Carbon Dioxide 27 mmol/L (22-29); Chloride 102 mmol/L (96-108); Creatinine Clr Calc Pharmacy 62.6; Estimated Glomerular Filt Rate > 60; Glucose Random 146 mg/dL (60-115); Magnesium 1.9 mg/dL (1.6-2.6); Potassium 3.6 mmol/L (3.3-5.1); Sodium 139 mmol/L (135-145); Total Protein 6.9 g/dL (6.5-8.0)
[2024-05-11] MEDS: LORazepam 2 MG/ML VIAL IVPUSH (19:18)
[2024-05-11 19:21] LABS: Lactic Acid 2.3 mmol/L (0.5-2.0)
[2024-05-11 19:48] LABS: Erythrocyte Sedimentation Rate 10 MM/HR (0-20)
[2024-05-11] MEDS: gadobutroL 7.5 ML VIAL IVPUSH (20:02)
[2024-05-11] MEDS: vancomycin HCL 1,000 MG, vancomycin HCL 750 MG in 0.9 % Sodium Chloride 500 ML 267.5 MG IV (20:23)
[2024-05-11] MEDS: 0.9 % Sodium Chloride 1,000 ML 999 ML IV (20:23)
--- NOTE | 2024-05-11 20:23 | PC.NURSE ---
This signwriter assumed care of this Pt at 1900. Pt arrived from MRI. Pt reports 10/10 lower back and lower and pain. Pt reports feeling like she got hit with a bat.
[2024-05-11 20:27] VITALS: BP 135/69; PULSE 83; RESP 18; TEMP 36.8; O2SAT 94
[2024-05-11 20:54] LABS: Reflex Lactate? Lactic Acid Added
[2024-05-11 22:01] VITALS: BP 154/41; PULSE 78; RESP 20; TEMP 36.7; O2SAT 96
[2024-05-11 22:01] LABS: ~Lactic Acid-LAB USE ONLY 1.3 mmol/L (0.5-2.0)
[2024-05-11] MEDS: iohexoL 350 MG/ML 100 ML INFUS..BTL IV (22:14)
[2024-05-11 22:38] VITALS: BP 147/78; PULSE 68; RESP 18
[2024-05-11 22:52] LABS: Appearance Urine Clear; Color Urine Yellow; Glucose Urine UA Negative (Negative); Leukocyte Esterase Urine Negative (Negative); Nitrite Urine Negative (Negative); Specific Gravity - Urine 1.025 (1.005-1.025); Urine Blood Negative (Negative); Urine Ketones Negative (Negative); Urine Protein Negative (Neg-Trace)
[2024-05-11 23:02] LABS: Amphetamine Screen Urine Not Detected (Not Detect); Barbiturates, Urine Not Detected (Not Detect); Benzodiazepines Screen Urine Not Detected (Not Detect); Buprenorphine Scr Not Detected (Not Detect); Cannabinoid Screen Urine Not Detected (Not Detect); Cocaine Screen Urine Not Detected (Not Detect); Fentanyl, urine POSITIVE (Not Detect); Methadone Screen, Urine Not Detected (Not Detect); Opiate Screen Urine POSITIVE (Not Detect); Oxycodone Screen Urine Not Detected (Not Detect); Phencyclidine Screen Urine Not Detected (Not Detect)
[2024-05-11] MEDS: Metoclopramide HCl 10 MG/2 ML VIAL IVPUSH (23:44)
[2024-05-11 23:56] VITALS: BP 216/103
[2024-05-12] VITALS (8 sets, daily range): BP systolic 163–226; BP diastolic 70–105; PULSE 64–72; RESP 12–21; TEMP 36.5–37.1; O2SAT 94–98
--- NOTE | 2024-05-12 00:02 | PC.NURSE ---
notified of hypertensive episode along with episode of severe diarrhea
[2024-05-12] MEDS: cloNIDine HCL 0.2 MG TABLET PO (00:22)
[2024-05-12] MEDS: diphenhydrAMINE HCL 50 MG/ML VIAL IVPUSH (00:23)
[2024-05-12] MEDS: LORazepam 2 MG/ML VIAL 1 MG IVPUSH ×2 (00:23→01:52)
--- NOTE | 2024-05-12 01:00 | PC.NURSE ---
MD aware that patients bp is still remaining elevated
[2024-05-12] MEDS: methADONE HCl 20 MG/2 ML ORAL.CONC 40 MG PO (01:51)
--- NOTE | 2024-05-12 08:12 | MHC.RECOVRN ---
Pts referral sent to [facility].
--- NOTE | 2024-05-12 09:32 | PC.NURSE ---
Patient seen by recovery support, to be DC and continue on methodone with outpatient survices
--- NOTE | 2024-05-12 09:34 | MHC.RECOVRN ---
Upon further review, pt does not meet [facility] level of care due to last use on Saturday. Met with pt in ED16, discussed options including CSS and MOUD continuation. Pt would like to continue methadone at [facility] in [place]. Pt aware of location and to present by 8AM. Denies other questions or concerns. Discussed with pts RN. Referral sent to [facility].
== END 2024-05-12 10:19 | disposition home or self-care (01) ==
PROVIDERS: Physician Assistant; Physician Assistant Medical; Emergency Provider Emergency Medicine; PCP Physician Assistant
DX: F11.23 Opioid dependence with withdrawal (principal); M54.9 Dorsalgia, unspecified; R10.9 Unspecified abdominal pain; R19.7 Diarrhea, unspecified; K92.1 Melena
CPT/HCPCS: 36415; 72158; 74177; 80053; 80307; 81003; 82272; 83605; 83735; 85025; 85610; 85652; 85730; 86140; 86850; 86900; 86901; 87040; 96361; 96365; 96366; 96367; 96375; 96376; 99284; A9585; J1170; J1200; J2060; J2543; J2765; J3370; Q9967

== ENCOUNTER 2024-08-09 06:18 | Emergency (ER) | payer MEDICARE, MEDICAID, SELFPAY ==
[2024-08-09] VITALS (7 sets, daily range): BP systolic 141–210; BP diastolic 75–94; PULSE 66–92; RESP 14–18; TEMP 36.4–36.8; O2SAT 94–98; BMI 30.2
--- NOTE | ~2024-08-09 | CT_ITS ---
EXAMINATION: CT ABDOMEN AND PELVIS WITH CONTRAST CLINICAL INFORMATION: Right lower quadrant pain COMPARISON: 05/11/2024 and 09/05/2023. Selected images from priors. TECHNIQUE: Multidetector volumetric images were obtained from the superior aspect of the liver through the pubic symphysis following administration 85 mL of Omnipaque 350 intravenous contrast. Sagittal and coronal reformatted images were obtained on the technologist's workstation. Oral contrast: No This CT examination was performed using dose optimization techniques as appropriate, variously including the following: *Automated exposure control *Adjustment of mA and/or kV according to patient size (this includes techniques or standardized protocols for targeted exams where dose is matched to indication/reason for exam; i.e. extremities or head) *Use of iterative reconstruction technique DLP: 650 mGy-cm FINDINGS: LUNG BASES: The visualized lung bases are unremarkable. LIVER, GALLBLADDER, AND BILIARY TREE: Persistent mild dilation of the intrahepatic bile ducts following cholecystectomy. Persistent prominence of the common duct following cholecystectomy without change from recent. Correlate with liver function studies. No choledocholithiasis identified. No ascites. There is a dropped gallstone in the right paracolic gutter lateral to the right liver tip. No sign of infection. PANCREAS: Uniform pancreatic enhancement without mass, ductal dilation or inflammation. SPLEEN: Normal sized spleen. ADRENAL GLANDS: Adrenal hypertrophy is reidentified. Chronic stable finding dating back multiple years with asymmetric enlargement of the left. KIDNEYS AND URETERS: Symmetric renal function without mass, calculus, hydronephrosis or hydroureter. No perinephric collections. BLADDER: Unremarkable. GASTROINTESTINAL TRACT: The stomach is distended with fluid. There is mild prominence of the first and second portions of the duodenum narrowing between the mesenteric vessels and IVC. Proximal jejunal bowel loops demonstrate mild wall thickening (example series 3 image 45/96) in the left upper quadrant. No significant fat stranding. This could represent mild enteritis. Normal terminal ileum. Normal appendix. The colon is normal in appearance. There are a few sigmoid diverticula but no evidence of diverticulitis. No free air or free fluid. ABDOMINAL WALL: Tiny, stable fat-containing umbilical hernia. LYMPH NODES: Normal. VASCULAR: Moderate atherosclerotic peripheral vascular disease. PELVIC VISCERA: The uterus and adnexa are within normal limits. Stable coarse calcification in the left adnexa. OSSEOUS STRUCTURES: Minor degenerative spine disease. CT/CT abdomen pelvis w IV con IMPRESSION: 1. Status post cholecystectomy. Stable mild prominence of the intra and extra hepatic bile ducts. Correlate with liver function studies. 2. Normal right lower quadrant. Normal appendix and terminal ileum. 3. Mild sigmoid diverticulosis without diverticulitis. 4. Mild small bowel wall thickening of the proximal jejunum without obstruction. Possible enteritis. Fleischner guidelines were followed. Electronically signed by: Jeramie Ariza MD 08/09/2024 10:42 AM [facility]
--- NOTE | 2024-08-09 06:58 | ED_ITS ---
HPI - Abdominal Pain General Chief Complaint: Abdominal Pain Stated Complaint: VOMITTING/ABDOMEN PAIN Time Seen by Provider: 08/09/24 06:56 Source: patient Limitations: no limitations History of Present Illness ED Provider: Suellen Coates NP HPI narrative: Patient is a 59-year-old female who presents emergency department via EMS for evaluation. She reports that she has been experiencing vomiting typically 2-3 episodes of green emesis daily for the past 3 days. Also has associated right lower quadrant pain 03/28. She received 4 mg Zofran IM prior to arrival to the hospital via EMS without any improvement. She states that she is feeling extremely anxious, she takes lorazepam daily but has not been able to keep anything down. Additionally she states that she ?vomits when my blood pressure is high?, and states that she has not been able to take her metoprolol because she can not keep that down either. Although she does admit that the vomiting started prior to having not been able to take the metoprolol. She denies associated headache, dizziness, lightheadedness, neck pain, vision changes, chest pain, shortness of breath, difficulty breathing, cough, URI symptoms, diarrhea, constipation, hematochezia, melena, dysuria, urinary frequency, urinary urgency, urinary hesitancy, hematuria, abnormal vaginal discharge or bleeding, pelvic pain. Related Data Home Medications ?Medication ?Instructions ?Recorded ?Confirmed albuterol sulfate 90 mcg/actuation 2 puff inhalation Q4H PRN 05/12/24 aerosol inhaler Shortness Of Breath Or Wheezing amlodipine 10 mg tablet 10 mg PO DAILY 05/12/24 insulin glargine 100 unit/mL (3 10 unit subcut BEDTIME 05/12/24 mL) subcutaneous pen (Basaglar KwikPen U-100 Insulin) lorazepam 1 mg tablet 1 mg PO BID PRN Anxiety 05/12/24 metformin 500 mg tablet,extended 500 mg PO BID 05/12/24 release 24 hr metoprolol tartrate 25 mg tablet 25 mg PO BID 05/12/24 olmesartan 20 mg tablet 20 mg PO DAILY 05/12/24 semaglutide 0.25 mg or 0.5 mg (2 0.25 mg subcut QWEEK 05/12/24 mg/3 mL) subcutaneous pen injector (Ozempic) Previous Rx's ?Medication ?Instructions ?Recorded ondansetron 4 mg disintegrating 4 mg PO Q8H PRN nausea and 08/09/24 tablet vomiting #10 tabs Allergies Allergy/AdvReac Type Severity Reaction Status Date / Time alcohol [ALCOHOL] Allergy Unknown SWELLING Verified 08/09/24 06:31 (FACIAL) duloxetine [From CYMBALTA] Allergy Unknown UNKNOWN Verified 08/09/24 06:31 pregabalin [From LYRICA] Allergy Unknown UNKNOWN Verified 08/09/24 06:31 shellfish derived Allergy Unknown UNKNOWN Verified 08/09/24 06:31 [SHELLFISH DERIVED] ketorolac [From Toradol] Allergy Rash Verified 08/09/24 06:31 tramadol Allergy Hives Verified 08/09/24 06:31 ondansetron [From Zofran] AdvReac Vomiting Verified 08/09/24 06:31 Review of Systems Review of Systems Yes all other systems are reviewed and are negative PMFSH Past Medical History Attestation statement: The following information was validated with the patient. Source: old records reviewed Medical History Diabetes IV drug abuse Hepatitis Heroin abuse Anxiety Gastroparesis Gastro-esophageal reflux Leukocytosis Low back pain HTN (hypertension) Surgical History H/O tubal ligation Hx of cholecystectomy History of left shoulder replacement Social History Social History Unable to assess alcohol history related to: Unknown Patient Tobacco Use Status: Never used Tobacco Smoked in Last 30 Days: Yes Use of substances other than those prescribed or required for medical reasons: No Advance Directives: No Advance Directives Information Provided: No Do you have a plan to hurt others: No Plan Patient : No Physical Exam ED Vital Signs: Vital Signs - 24 hr 08/09/24 06:28 08/09/24 07:32 08/09/24 10:00 Temperature 98.1 F 98.2 F Pulse Rate 70 66 70 Respiratory Rate 16 18 18 Blood Pressure 196/82 H 198/76 H 210/80 H Pulse Oximetry 96 95 94 Oxygen Delivery Method Room Air Room Air Room Air 08/09/24 12:26 08/09/24 12:26 08/09/24 12:31 Temperature 97.6 F Pulse Rate 92 83 Respiratory Rate 18 Blood Pressure 141/78 H 141/78 H 153/75 H Pulse Oximetry 98 Oxygen Delivery Method Room Air 08/09/24 13:30 Temperature 98.1 F Pulse Rate 69 Respiratory Rate 14 Blood Pressure 174/88 H Pulse Oximetry 95 Oxygen Delivery Method Room Air BMI result Body Mass Index 30.2 Appearance: Alert.?Oriented to person, place and time. No acute distress.?Normal affect.?? Neck: Normal inspection.? Neck supple.?? CVS: Heart sounds normal. Normal heart rate and rhythm.? Pulses normal.?? Respiratory: No respiratory distress.? Lung sounds clear to auscultation bilaterally?? Abdomen: Soft with right lower quadrant tenderness upon palpation. No rebound tenderness at McBurney's point. Negative psoas sign. Negative Rovsing sign. Negative Lara sign. No CVAT. Normoactive bowel sounds. No pulsatile mass.?? Skin: Skin warm and dry.? Normal skin color.? Extremities: No lower extremity edema.? Neuro: Moves all extremities spontaneously. Sensation intact bilaterally. Ambulates with normal steady gait. Course Reevaluation(s) Reevaluation #1: CT of the abdomen and pelvis reveals mildly prominent intra and extrahepatic bile ducts, AST/ALT is minimally elevated, normal appendix, diverticulosis without diverticulitis, mild small bowel wall thickening the proximal jejunum without obstruction, likely a gastroenteritis. She remains hypertensive, now that her nausea has improved and vomiting has subsided, will provide with her oral antihypertensive regimen. Reevaluation #2: Patient was able to pass a p.o. trial. Will discharge home with antiemetic and strict return precautions. All questions answered. Stable for discharge Medical Decision Making Medical Decision Making MDM Narrative: Patient is a 59-year-old female with past medical history of diabetes, gastroparesis, opiate use disorder, IVDA, GERD, hepatitis, hypertension, anxiety who presents emergency department for evaluation of nausea vomiting right lower quadrant pain with onset 3 days ago. Denies history of similar presentations in the past. Denies any recent recreational drug or alcohol usage. She denies any known sick contacts. Overall she appears uncomfortable and quite anxious, she is tearful and having a hard time sitting still on the stretcher. On evaluation she has right lower quadrant tenderness upon palpation but no rebound tenderness and no rigidity. Currently she is afebrile without tachycardia and is notably hypertensive although as per HPI she has not been taking her antihypertensives. Pain is localized to the right lower quadrant she has no rebound tenderness no red you still have concern for appendicitis therefore CT abdomen and pelvis will be obtained for further evaluation. Given her history of diabetes lack of intake and vomiting over the past few days we also discussed possibility for gastroparesis, DKA. She will receive 1 L normal saline IV fluid, Reglan IV for nausea/vomiting, as well as lorazepam. Differential Diagnosis Differential Diagnoses: The differential diagnosis associated with the presentation includes (See narrative above) No associated chest pain shortness of breath or URI symptoms to suggest pneumonia, no clinical evidence of DVT or personal history of VTE/malignancy to suggest pulmonary embolism. Lower suspicion for myocardial infarction given pain is localized to the lower abdomen and is without chest pain, less likely AAA, aortic dissection. No RUQ abdominal tenderness upon palpation, negative Lara sign, s/p cholecystectomy, although possibly be CBD stone suspect this is less likely. Denies associated acid reflux, though she has a history of GERD, no tenderness upon palpation over the epigastrium or left upper quadrant to suggest gastritis, no recent hematemesis history less likely to suggest PUD. She does have a history of diabetes, pain however is not localized to the upper abdomen around the left side to suggest acute pancreatitis. No tenderness of the left lower quadrant nor associated nausea, vomiting, diarrhea, constipation, hematochezia or melena to suggest diverticulitis or GI bleed. No appreciable hernia to suggest strangulation/incarceration. Lower suspicion for bowel obstruction. No distention or rigidity to suggest GI perforation. No associated genitourinary symptoms to suggest UTI/pyelonephritis, renal colic, hydronephrosis. Admission/Observation Consideration of admission/observation: Escalation of care including admission/observation considered (See narrative above ) Lab Data MDM Lab Attestation statement: I reviewed the patient's lab results. 08/09/24 08:13 08/09/24 08:13 Labs: Lab Results 08/09/24 08/09/24 08/09/24 Range/Units 08:12 08:13 09:09 WBC 9.6 (4.8-10.8) X10*3/uL RBC 5.62 H (4.20-5.50) X10*6/uL Hgb 15.8 (12.0-16.0) g/dl Hct 45.0 (37.0-47.0) % MCV 80.1 (80.0-98.0) fL MCH 28.1 (27.0-33.0) pg MCHC 35.1 H (31.0-35.0) g/dl RDW 13.2 (11.0-16.0) % Plt Count 250 (160-400) X10*3/uL MPV 9.2 L (9.4-12.3) fL Immature Gran % (Auto) 0.5 H (0.0-0.4) % Neut % (Auto) 80.5 H (45-73) % Lymph % (Auto) 13.3 L (20-40) % [place] % (Auto) 5.3 (2-11) % Eos % (Auto) 0.1 (0-4) % Baso % (Auto) 0.3 (0-2) % Lymph # (Auto) 1.3 (1.2-4.9) X10*3/uL [place] # (Auto) 0.5 (0.1-1.2) X10*3/uL Eos # (Auto) 0.0 (0.0-0.4) X10*3/uL Baso # (Auto) 0.0 (0.0-0.2) X10*3/uL Abs Immat Gran (auto) 0.05 H (0.00-0.03) X10*3/uL Absolute Neuts (auto) 7.7 (2.0-8.3) x10*3/uL Absolute Nucleated RBC 0.000 (0.0-0.012) X10*3/uL Nucleated RBC % (auto) 0.0 (0.0-0.2) /100WBC PT 12.6 H (10.9-12.4) SEC INR 1.1 (0.9-1.1) VBG pH (7.32-7.43) VBG pCO2 mmHg VBG pO2 mmHg VBG HCO3 (22-26) mmol/L VBG O2 Saturation % VBG Base Excess mmol/L Sodium 132 L (135-145) mmol/L Potassium 3.6 (3.3-5.1) mmol/L Chloride 92 L (96-108) mmol/L Carbon Dioxide 26 (22-29) mmol/L Anion Gap 18 (12-20) BUN 24 H (9-16) mg/dL Creatinine 0.84 (0.5-1.4) mg/dL Estim Creat Clear Calc 64.0 Estimated GFR > 60 Random Glucose 288 H (60-115) mg/dL Lactic Acid 2.0 (0.5-2.0) mmol/L Calcium 8.9 (8.4-10.2) mg/dL Magnesium 2.1 (1.6-2.6) mg/dL Total Bilirubin 0.7 (0.0-1.0) mg/dL AST 37 H (5-31) U/L ALT 38 H (0-31) U/L Alkaline Phosphatase 113 (39-117) U/L Total Protein 7.2 (6.5-8.0) g/dL Albumin 4.0 (3.5-5.0) g/dL Lipase 21 (8-78) U/L Beta-Hydroxybutyrate 0.76 H (0.02-0.27) mmol/L Urine Color Yellow Urine Appearance Cloudy Urine pH 6.0 (5.0-9.0) Ur Specific [place] 1.020 (1.005-1.025) Urine Protein Negative (Neg-Trace) mg/dL Urine Glucose (UA) >=1000 H (Negative) mg/dL Urine Ketones 40 (Negative) mg/dL Urine Blood Negative (Negative) Urine Nitrite Negative (Negative) Ur Leukocyte Esterase Negative (Negative) Urine RBC 0-2 (0-2) /HPF Urine WBC 0-5 (0-5) /HPF Ur Squamous Epith Cells 3-5 (0-2) /HPF Urine Bacteria None Seen (None Seen) Hyaline Casts 3-5 (0-2) /LPF Urine Opiates Screen POSITIVE H (Not Detect) Ur Buprenorphine Scrn Not Detected (Not Detect) ng/mL Ur Oxycodone Screen Not Detected (Not Detect) ng/mL Urine Methadone Screen Not Detected (Not Detect) ng/mL Urine Fentanyl Screen POSITIVE H (Not Detect) Ur Barbiturates Screen Not Detected (Not Detect) Ur Phencyclidine Scrn Not Detected (Not Detect) Ur Amphetamines Screen Not Detected (Not Detect) U Benzodiazepines Scrn Not Detected (Not Detect) Urine Cocaine Screen Not Detected (Not Detect) U Marijuana (THC) Screen Not Detected (Not Detect) Ethyl Alcohol mg/dL Influenza Type A (PCR) NEGATIVE (Negative) Influenza Type B (PCR) NEGATIVE (Negative) RSV RNA Qual (PCR) NEGATIVE (Negative) SARS-CoV-2 RNA (RT-PCR) NEGATIVE (Negative) 08/09/24 08/09/24 Range/Units 09:21 09:28 WBC (4.8-10.8) X10*3/uL RBC (4.20-5.50) X10*6/uL Hgb (12.0-16.0) g/dl Hct (37.0-47.0) % MCV (80.0-98.0) fL MCH (27.0-33.0) pg MCHC (31.0-35.0) g/dl RDW (11.0-16.0) % Plt Count (160-400) X10*3/uL MPV (9.4-12.3) fL Immature Gran % (Auto) (0.0-0.4) % Neut % (Auto) (45-73) % Lymph % (Auto) (20-40) % [place] % (Auto) (2-11) % Eos % (Auto) (0-4) % Baso % (Auto) (0-2) % Lymph # (Auto) (1.2-4.9) X10*3/uL [place] # (Auto) (0.1-1.2) X10*3/uL Eos # (Auto) (0.0-0.4) X10*3/uL Baso # (Auto) (0.0-0.2) X10*3/uL Abs Immat Gran (auto) (0.00-0.03) X10*3/uL Absolute Neuts (auto) (2.0-8.3) x10*3/uL Absolute Nucleated RBC (0.0-0.012) X10*3/uL Nucleated RBC % (auto) (0.0-0.2) /100WBC PT (10.9-12.4) SEC INR (0.9-1.1) VBG pH 7.48 H (7.32-7.43) VBG pCO2 45 mmHg VBG pO2 61 mmHg VBG HCO3 34 H (22-26) mmol/L VBG O2 Saturation 91.0 % VBG Base Excess 9.5 mmol/L Sodium (135-145) mmol/L Potassium (3.3-5.1) mmol/L Chloride (96-108) mmol/L Carbon Dioxide (22-29) mmol/L Anion Gap (12-20) BUN (9-16) mg/dL Creatinine (0.5-1.4) mg/dL Estim Creat Clear Calc Estimated GFR Random Glucose (60-115) mg/dL Lactic Acid (0.5-2.0) mmol/L Calcium (8.4-10.2) mg/dL Magnesium (1.6-2.6) mg/dL Total Bilirubin (0.0-1.0) mg/dL AST (5-31) U/L ALT (0-31) U/L Alkaline Phosphatase (39-117) U/L Total Protein (6.5-8.0) g/dL Albumin (3.5-5.0) g/dL Lipase (8-78) U/L Beta-Hydroxybutyrate (0.02-0.27) mmol/L Urine Color Urine Appearance Urine pH (5.0-9.0) Ur Specific [place] (1.005-1.025) Urine Protein (Neg-Trace) mg/dL Urine Glucose (UA) (Negative) mg/dL Urine Ketones (Negative) mg/dL Urine Blood (Negative) Urine Nitrite (Negative) Ur Leukocyte Esterase (Negative) Urine RBC (0-2) /HPF Urine WBC (0-5) /HPF Ur Squamous Epith Cells (0-2) /HPF Urine Bacteria (None Seen) Hyaline Casts (0-2) /LPF Urine Opiates Screen (Not Detect) Ur Buprenorphine Scrn (Not Detect) ng/mL Ur Oxycodone Screen (Not Detect) ng/mL Urine Methadone Screen (Not Detect) ng/mL Urine Fentanyl Screen (Not Detect) Ur Barbiturates Screen (Not Detect) Ur Phencyclidine Scrn (Not Detect) Ur Amphetamines Screen (Not Detect) U Benzodiazepines Scrn (Not Detect) Urine Cocaine Screen (Not Detect) U Marijuana (THC) Screen (Not Detect) Ethyl Alcohol < 10 mg/dL Influenza Type A (PCR) (Negative) Influenza Type B (PCR) (Negative) RSV RNA Qual (PCR) (Negative) SARS-CoV-2 RNA (RT-PCR) (Negative) Independent Historian Clinical information obtained from an independent historian. History obtained from or confirmed by: EMS External Record Review External record reviewed: Outpatient record Chronic Conditions Patient?s care impacted by: Other (See narrative above) Medications Administered Discontinued Medications Generic Name Dose Route Start Last Admin Trade Name Freq PRN Reason Stop Dose Admin Enalapril Maleate 5 mg 08/09/24 11:54 08/09/24 12:31 Enalapril Maleate 5 Mg Tablet PO 08/09/24 11:55 5 mg ONCE ONE Administration Protocol Sodium Chloride 1,000 mls @ 999 mls/hr 08/09/24 07:15 08/09/24 09:59 Ns IV 08/09/24 08:15 Infused .Q1H1M LES Infusion Insulin Human Lispro 5 unit 08/09/24 08:55 08/09/24 09:58 Insulin Lispro 100 Unit/Ml 3 Ml Vial SUBCUT 08/09/24 08:56 5 unit ONCE ONE Administration Iohexol 100 ml 08/09/24 09:46 08/09/24 09:46 Iohexol 350 Mg/Ml 100 Ml Infus..Btl IV 08/09/24 09:47 85 ml ONCE ONE Administration Lorazepam 1 mg 08/09/24 07:02 08/09/24 07:59 Lorazepam 2 Mg/Ml Vial IVPUSH 08/09/24 07:03 1 mg ONCE ONE Administration Lorazepam 1 mg 08/09/24 11:54 08/09/24 12:26 Lorazepam 1 Mg Tablet PO 08/09/24 11:55 1 mg ONCE ONE Administration Metoclopramide HCl 10 mg 08/09/24 07:02 08/09/24 07:55 Metoclopramide Hcl 10 Mg/2 Ml Vial IVPUSH 08/09/24 07:03 10 mg ONCE ONE Administration Metoprolol Tartrate 50 mg 08/09/24 11:54 08/09/24 12:26 Metoprolol Tartrate 50 Mg Tablet PO 08/09/24 11:55 50 mg ONCE ONE Administration Protocol Critical Care Time Critical Care Time Critical Care Time: Yes Total Critical Care Time: 35 Attestation: I personally attest to this critical care time spent taking care of the patient exclusive of all other billable procedures was approximately 35 minutes including initial evaluation of patient, ordering tests, lorazepam iv and re- evaluation, EKG interpretation, medical consultation, documentation, re- evaluation. Discharge Plan Discharge Clinical Impression: Gastroenteritis Patient Disposition: Home, Self-Care Instructions: Gastroenteritis (ED) Additional Instructions: Be sure that you are staying well hydrated, small frequent amounts of oral fluids particularly water and/or electrolyte supplementation is ideal. Introduce a bland diet including crackers, bananas, rice, soup, toast, and boiled vegetables. This may progress to plain baked or boiled chicken or turkey. Avoid dairy products or foods high in fat or grease. Continue taking your medications as prescribed. Prescription for Zofran has been sent to the pharmacy to use as needed for nausea/vomiting. Return to emergency department any new or worsening symptoms or concerns. Prescriptions: New ondansetron 4 mg tablet,disintegrating 4 mg PO Q8H PRN (Reason: nausea and vomiting) Qty: 10 0RF No Action amlodipine 10 mg tablet 10 mg PO DAILY lorazepam 1 mg tablet 1 mg PO BID PRN (Reason: Anxiety) albuterol sulfate 90 mcg/actuation HFA aerosol inhaler 2 puff INHALATION Q4H PRN (Reason: Shortness Of Breath Or Wheezing) metformin 500 mg tablet extended release 24 hr 500 mg PO BID olmesartan 20 mg tablet 20 mg PO DAILY metoprolol tartrate 25 mg tablet 25 mg PO BID insulin glargine [Basaglar KwikPen U-100 Insulin] 100 unit/mL (3 mL) insulin pen 10 unit subcut BEDTIME Ozempic 0.25 mg or 0.5 mg (2 mg/3 mL) pen injector 0.25 mg subcut QWEEK Referrals: Physician,Unknown J [Primary Care Provider] - Discharge Date/Time: 08/09/24 20:27 Print Language: Kiswahili
--- NOTE | 2024-08-09 07:33 | PC.NURSE ---
Pt writhing in pain. dry MM. states she's been vomiting for 3 days. vomiting preceeded diffuse abd pain. denies drinking. hasn't taken HTN meds in three days. difficult stick.
[2024-08-09] MEDS: Metoclopramide HCl 10 MG/2 ML VIAL IVPUSH (07:55)
[2024-08-09] MEDS: 0.9 % Sodium Chloride 1,000 ML 999 ML IV (07:59)
[2024-08-09] MEDS: LORazepam 2 MG/ML VIAL 1 MG IVPUSH (07:59)
[2024-08-09 08:18] LABS: MANUAL DIFF FLAG NO
[2024-08-09 08:19] LABS: Basophils Percent Auto 0.3 % (0-2); Eosinophils Percent Auto 0.1 % (0-4); Hemoglobin 15.8 g/dl (12.0-16.0); Imm Gran Abs Auto 0.05 X10*3/uL (0.00-0.03); Imm Gran Pct Auto 0.5 % (0.0-0.4); Lymphocytes Absolute Auto 1.3 X10*3/uL (1.2-4.9); Lymphocytes Percent Auto 13.3 % (20-40); Mean Corpuscular HGB Conc 35.1 g/dl (31.0-35.0); Mean Corpuscular Hemoglobin 28.1 pg (27.0-33.0); Mean Corpuscular Volume 80.1 fL (80.0-98.0); Mean Platelet Volume 9.2 fL (9.4-12.3); Monocytes Absolute Auto 0.5 X10*3/uL (0.1-1.2); Monocytes Percent Auto 5.3 % (2-11); Neutrophils Absolute Auto 7.7 x10*3/uL (2.0-8.3); Neutrophils Percent Auto 80.5 % (45-73); Platelet Count 250 X10*3/uL (160-400); Red Blood Count 5.62 X10*6/uL (4.20-5.50); Red Cell Distribution Width 13.2 % (11.0-16.0); White Blood Count 9.6 X10*3/uL (4.8-10.8)
[2024-08-09 08:32] LABS: Beta-Hydroxybutyrate 0.76 mmol/L (0.02-0.27)
[2024-08-09 08:39] LABS: Anion Gap 18 (12-20); Aspartate Amino Transferase 37 U/L (5-31); Bilirubin Total 0.7 mg/dL (0.0-1.0); Blood Urea Nitrogen 24 mg/dL (9-16); Calcium 8.9 mg/dL (8.4-10.2); Carbon Dioxide 26 mmol/L (22-29); Chloride 92 mmol/L (96-108); Estimated Glomerular Filt Rate > 60; Glucose Random 288 mg/dL (60-115); Lipase 21 U/L (8-78); Magnesium 2.1 mg/dL (1.6-2.6); Potassium 3.6 mmol/L (3.3-5.1); Sodium 132 mmol/L (135-145); Total Protein 7.2 g/dL (6.5-8.0)
[2024-08-09 08:41] LABS: INTERNATIONAL NORM RATIO 1.1 (0.9-1.1); Prothrombin Time 12.6 SEC (10.9-12.4)
[2024-08-09 08:57] LABS: Alanine Aminotransferase 38 U/L (0-31); Alkaline Phosphatase 113 U/L (39-117)
[2024-08-09 09:17] LABS: Appearance Urine Cloudy; Color Urine Yellow; Glucose Urine UA >=1000 mg/dL (Negative); Leukocyte Esterase Urine Negative (Negative); Nitrite Urine Negative (Negative); UMIC TRIGGER UACC YES; Urine Blood Negative (Negative); Urine Ketones 40 mg/dL (Negative); Urine Protein Negative (Neg-Trace)
[2024-08-09 09:22] LABS: Bacteria Urine None Seen (None Seen); RBC Urine 0-2 /HPF (0-2); WBC Urine 0-5 /HPF (0-5)
[2024-08-09 09:27] LABS: Amphetamine Screen Urine Not Detected (Not Detect); Barbiturates, Urine Not Detected (Not Detect); Benzodiazepines Screen Urine Not Detected (Not Detect); Buprenorphine Scr Not Detected (Not Detect); Cannabinoid Screen Urine Not Detected (Not Detect); Cocaine Screen Urine Not Detected (Not Detect); Fentanyl, urine POSITIVE (Not Detect); Methadone Screen, Urine Not Detected (Not Detect); Opiate Screen Urine POSITIVE (Not Detect); Oxycodone Screen Urine Not Detected (Not Detect); Phencyclidine Screen Urine Not Detected (Not Detect)
[2024-08-09 09:32] LABS: Venous Blood Gas Refer to POC result
[2024-08-09 09:34] LABS: VBG Base Excess 9.5 mmol/L; VBG HCO3 34 mmol/L (22-26); VBG pCO2 45 mmHg; VBG pH 7.48 (7.32-7.43); VBG pO2 61 mmHg
[2024-08-09 09:39] LABS: Influenza A PCR NEGATIVE (Negative); Influenza B PCR NEGATIVE (Negative); Resp Syncy Virus RNA Qual PCR NEGATIVE (Negative); SARS COV2 PCR INHOUSE NEGATIVE (Negative)
[2024-08-09 09:40] LABS: Ethanol < 10 mg/dL
[2024-08-09] MEDS: iohexoL 350 MG/ML 100 ML INFUS..BTL IV (09:46)
[2024-08-09] MEDS: Insulin Lispro 100 UNIT/ML 3 ML VIAL SUBCUT (09:58)
--- NOTE | 2024-08-09 10:01 | PC.NURSE ---
Pt tobar been aggitated, restless initially. Now sleeping Arousable to light touch, skin pwd. no resp depression.
[2024-08-09] MEDS: LORazepam 1 MG TABLET PO (12:26)
[2024-08-09] MEDS: Metoprolol Tartrate 50 MG TABLET PO (12:26)
--- NOTE | 2024-08-09 12:28 | PC.NURSE ---
frequent requests for pain meds for lower back. states last opiate use was over a month ago. calmer.
--- NOTE | 2024-08-09 13:58 | PC.NURSE ---
took a few sips/bites for PO trial and fell asleep. no vomiting
== END 2024-08-09 20:27 | disposition home or self-care (01) ==
PROVIDERS: Nurse Practitioner Family; Emergency Provider Emergency Medicine Emergency Medical Services
DX: K52.9 Noninfective gastroenteritis and colitis, unspecified (principal); R10.2 Pelvic and perineal pain; R11.2 Nausea with vomiting, unspecified; R10.31 Right lower quadrant pain; Z51.81 Encounter for therapeutic drug level monitoring; Z03.818 Encounter for observation for suspected exposure to other biological agents ruled out; Z79.899 Other long term (current) drug therapy
CPT/HCPCS: 0241U; 36415; 74177; 80053; 80307; 81001; 82010; 82803; 83605; 83690; 83735; 85025; 85610; 96361; 96374; 96375; 99284; 99285; J2060; J2765; Q9967